=== PATIENT | female | born 1980 | race Caucasian/White ===

== ENCOUNTER → 2017-09-20 15:21 | Outpatient (CLI) | payer OTHER, SELFPAY ==
[2017-09-20 15:55] LABS: Hematocrit 29.7 % (37-47); Hemoglobin 9.8 g/dl (12.0-15.0); Mean Corpuscular Hgb 28.1 pg (27.0-32.0); Mean Corpuscular Volume 85.1 fL (81-99); Mean Platelet Vol. 9.1 fl (6.2-12.0); Platelet Count 271 K/mm3 (150-450); RBC Distribution Width CV 13.9 % (11.6-14.6); RBC Distribution Width SD 43.2 fl (35.1-43.9); Red Blood Count 3.49 M/mm3 (4.2-5.4); White Blood Count 12.3 K/mm3 (4.4-11.0)
[2017-09-20 16:00] LABS: Scan Indicated on CBC? Y/N NO
[2017-09-20 16:19] LABS: Glucose Challenge Gest 1H 50g 105 mg/dL (70-140)
== END ==
PROVIDERS: Visit Provider Obstetrics & Gynecology
DX: Z34.82 Encounter for supervision of other normal pregnancy, second trimester (principal)
CPT/HCPCS: 36415; 82950; 85027

== ENCOUNTER → 2017-11-22 16:59 | Outpatient (CLI) | payer OTHER, SELFPAY ==
[2017-11-22 19:57] LABS: Group B Strep DNA By PCR Negative (Negative); Internal Control PASS; Probe Check PASS; Specimen Processing Control PASS
== END ==
PROVIDERS: Visit Provider Obstetrics & Gynecology
DX: Z36.85 Encounter for antenatal screening for Streptococcus B (principal)
CPT/HCPCS: 87081; 87653

== ENCOUNTER → 2017-12-19 13:40 | Outpatient (CLI) | payer OTHER, MEDICAID, SELFPAY ==
[2017-12-19 15:44] LABS: Hematocrit 32.7 % (37-47); Mean Corp Hgb Conc 33.6 g/gl (32-36); Mean Corpuscular Hgb 29.3 pg (27.0-32.0); Mean Corpuscular Volume 87.2 fL (81-99); Mean Platelet Vol. 9.8 fl (6.2-12.0); Platelet Count 263 K/mm3 (150-450); RBC Distribution Width CV 14.4 % (11.6-14.6); RBC Distribution Width SD 44.1 fl (35.1-43.9); Red Blood Count 3.75 M/mm3 (4.2-5.4); White Blood Count 13.7 K/mm3 (4.4-11.0)
[2017-12-19 15:45] LABS: Scan Indicated on CBC? Y/N NO
[2017-12-19 15:56] LABS: Protein, Urine (Random) < 6.0 mg/dL (<11.9)
[2017-12-19 16:00] LABS: ALB/GLOB Ratio 0.7 RATIO (0.9-2.4); AST(SGOT) 11 U/L (15-37); Alanine Aminotransfer ALT/SGPT 16 U/L (13-56); Alkaline Phosphatase 125 U/L (45-117); Anion Gap 13 (5-15); BUN 9 mg/dL (7-18); BUN/Creat Ratio 16.5 RATIO (10-20); Calcium,Total 8.8 mg/dL (8.5-10.1); Chloride 106 mmol/L (98-107); Creatinine, Serum 0.54 mg/dL (0.55-1.02); EST Glomerular Filtration Rate 135 mL/min (>60); Est Glom Filt Rate - Afr Amer 163 mL/min (>60); Globulin 4.1 g/dL (2.2-4.2); Glucose 78 mg/dL (74-106); Potassium 3.7 mmol/L (3.5-5.1); Protein, Total 7.1 g/dL (6.4-8.2); Sodium Level 140 mmol/L (136-145); Uric Acid 3.8 mg/dL (2.6-6.0)
== END ==
PROVIDERS: Visit Provider Obstetrics & Gynecology
DX: O13.3 Gestational [pregnancy-induced] hypertension without significant proteinuria, third trimester (principal); Z3A.00 Weeks of gestation of pregnancy not specified
CPT/HCPCS: 36415; 80053; 82570; 84156; 84550; 85027

== ENCOUNTER 2017-12-21 08:35 | Inpatient (IN) | payer OTHER, MEDICAID, SELFPAY ==
[2017-12-21 08:28] VITALS: BMI 43.0
[2017-12-21] MEDS: Lactated Ringers 1,000 ML 50 ML IV ×3 (09:00→17:28)
[2017-12-21 09:25] LABS: Hematocrit 31.8 % (37-47); Hemoglobin 10.4 g/dl (12.0-15.0); Mean Corp Hgb Conc 32.7 g/gl (32-36); Mean Corpuscular Hgb 28.3 pg (27.0-32.0); Mean Corpuscular Volume 86.6 fL (81-99); Mean Platelet Vol. 9.3 fl (6.2-12.0); Platelet Count 240 K/mm3 (150-450); RBC Distribution Width CV 14.5 % (11.6-14.6); RBC Distribution Width SD 45.6 fl (35.1-43.9); Red Blood Count 3.67 M/mm3 (4.2-5.4); White Blood Count 13.1 K/mm3 (4.4-11.0)
[2017-12-21 09:26] LABS: Scan Indicated on CBC? Y/N NO
--- NOTE | 2017-12-21 09:51 | PCM.PN.OB ---
Subjective: Appears comfortable. Some contractions Objective: Afeb VSS. FHR tracing Cat 1. - Physical Exam General: Alert, Oriented x3, Cooperative, No apparent distress Lungs: Clear to auscultation, Normal air movement Cardiovascular: Regular rate, Regular Rhythm Abdomen: Non Tender, Gravid, Appropriate for Gestational Age Extremities: No edema Skin: No rashes Neurological: Neuro grossly intact Psych/Mental Status: Normal Affect Comment: CE 5/80/-2. Weight: 283 lb Body Mass Index (BMI) 43.0 Laboratory Tests Past 24 Hrs 12/21/17 12/21/17 09:00 09:10 WBC 13.1 H RBC 3.67 L Hgb 10.4 L Hct 31.8 L MCV 86.6 MCH 28.3 MCHC 32.7 RDW 14.5 RDW Differential 45.6 H Plt Count 240 MPV 9.3 Blood Type Pending Antibody Screen Pending Medical Necessity - Tobacco Use Smoking Status: Current every day smoker Assessment/Plan Admitted in labor. AROM performed with thin meconium noted. Will have pediatrics at delivery. Epidural if desired.
[2017-12-21] MEDS: Ondansetron 4 MG/2 ML Vial IV (12:22)
[2017-12-21] MEDS: fentaNYL-bupivacaine (epidural) 100 ML BAG EPIDURAL (12:23)
[2017-12-21] MEDS: Oxytocin 30 units/NS 500 ml 30 UNITS/500 ML IV.SOLN IV (13:00)
[2017-12-21] MEDS: Amnioinfusion- 0.9% NS 1,000 ML IV.SOLN. 1000 ML INTRA-UTER (15:59)
[2017-12-21] MEDS: Acetaminophen 325 MG Tablet PO (17:40)
--- NOTE | 2017-12-21 19:17 | OP.PCM_ITS ---
Vaginal Delivery Maternal Presentation: Active Labor 40 + wk labor Amniotic Membrane Rupture Type: Artificial Amniotic Fluid Description: Lightly stained meconium Final JOSSIE Source: US <20 weeks Gestational age: 40 + wk [place] doctor who attended delivery (if requested by OB): Teri Chino Date of Procedure: 12/21/17 Pre-Operative Diagnosis: 40 + wk labor. Post-Operative Diagnosis: same Surgery/ Procedure Performed: Spontaneous Vaginal Delivery Type of Anesthesia: Epidural Description of Procedure: of a jacobs viable male over intact perineum Head delivered OA. No nuchal cord noted. Shoulders delivered easily. OP and nares bulb suctioned after delivery of shoulders. baby vigorous and crying, placed on maternal abdomen. Delayed cord clamping. Cord clamped x two and cut. Routine blood for tyoping and cord gases collected and sent. PP exam; 1st deg posterior vaginal laceration repaired to hemostatic, intact with 3-0 vicryl. No other lacerations. Placenta delivered by spont expulsion, expression. 3V cord, normal appearing, intqact with trailing membranes. EBL 350 cc Pt and infant tolerated delivery well. to recovery , stable condition. Presentation: Vertex, ALEIDA Placental Delivery Description: Spontaneous, Expressed Placenta Disposition: [facility] Cord Gases drawn per routine: ABG, VBG Cord Entanglement: None Drain: Dumont to straight drain Estimated Blood Loss: 350 Infant A gender: Male (1 minute): 9 (5 minute): 9 Episiotomy Description: None Laceration: Midline, Vaginal Extension/lac, 1st degree Medications given after delivery: IV Pitocin Complications: None
--- NOTE | 2017-12-21 19:20 | PCM.DCVAG ---
Discharge Diet: No Restrictions Discharge Activity: May Shower, May Take a Tub Bath May resume sexual activity in: 4-6 weeks Additional Activity Instructions:: Nothing in the vagina for 4-6 weeks. You may return to work/school in 6 weeks. Additional Instructions: If you experience any of the following, contact your healthcare provider. Bleeding that soaks a pad every hour for 2 hours Fever 100.4 or higher Unrelieved abdominal pain Problems urinating (including inability to urinate or burning while urinating). Visual changes Severe headache Flu-like symptoms Pain or redness in one of both of your breasts Pain, warmth, tenderness or swelling in your legs, especially the calf area Frequent nausea and vomiting Symptoms of depression or anxiety If you experience any of the following, call 911 or go to the nearest Emergency Room. Chest pain Problems breathing Seizure activity Partial or complete paralysis of a body part, slurred speech, weakness or drooping of the face, or a sudden inability to walk or hold your balance Allergies/Adverse Reactions: Allergies Penicillins Allergy (Verified 12/21/17 08:31) Other Medications to take at Discharge Acetaminophen [Tylenol Extra Strength] 500 mg PO Q6H PRN PRN 12/21/17 Cephalexin [Keflex] 500 mg PO Q8 12/21/17 Vits [Prenatabs FA] 1 tablet PO DAILY 12/21/17 proMETHazine tablet [Phenergan tablet] 25 mg PO Q4H PRN PRN 12/21/17 Please Follow Up With: Kayleigh Bell MD - [phone] When: Call to make an appointment with your doctor in 6 weeks. Primary Care Physician: Care Physician,No Primary [Primary Care Provider] - Test Results: Test results from this visit will be discussed in further detail at your follow-up appointment, if applicable. Proposed Discharge Date: 12/23/17
--- NOTE | 2017-12-21 19:21 | DCINST_ITS ---
Discharge Diet: No Restrictions Discharge Activity: May Shower, May Take a Tub Bath May resume sexual activity in: 4-6 weeks Additional Activity Instructions:: Nothing in the vagina for 4-6 weeks. You may return to work/school in 6 weeks. Additional Instructions: If you experience any of the following, contact your healthcare provider. * Bleeding that soaks a pad every hour for 2 hours * Fever 100.4 or higher * Unrelieved abdominal pain * Problems urinating (including inability to urinate or burning while urinating) . * Visual changes * Severe headache * Flu-like symptoms * Pain or redness in one of both of your breasts * Pain, warmth, tenderness or swelling in your legs, especially the calf area * Frequent nausea and vomiting * Symptoms of depression or anxiety If you experience any of the following, call 911 or go to the nearest Emergency Room. * Chest pain * Problems breathing * Seizure activity * Partial or complete paralysis of a body part, slurred speech, weakness or drooping of the face, or a sudden inability to walk or hold your balance Allergies/Adverse Reactions: Allergies Penicillins Allergy (Verified 12/21/17 08:31) Other Medications to take at Discharge Acetaminophen [Tylenol Extra Strength] 500 mg PO Q6H PRN PRN 12/21/17 Cephalexin [Keflex] 500 mg PO Q8 12/21/17 Vits [Prenatabs FA] 1 tablet PO DAILY 12/21/17 proMETHazine tablet [Phenergan tablet] 25 mg PO Q4H PRN PRN 12/21/17 Please Follow Up With: Kayleigh Bell MD - [phone] When: Call to make an appointment with your doctor in 6 weeks. Primary Care Physician: Care Physician,No Primary [Primary Care Provider] - Test Results: Test results from this visit will be discussed in further detail at your follow- up appointment, if applicable. Proposed Discharge Date: 12/23/17
[2017-12-21] MEDS: Oxytocin 30 units/NS 500 ml 30 UNITS/500 ML IV.SOLN 334 UNITS IV (19:23)
[2017-12-21] MEDS: Oxytocin 30 units/NS 500 ml 30 UNITS/500 ML IV.SOLN 167 UNITS IV (20:00)
--- NOTE | 2017-12-22 03:00 | NURSING ---
Taking over pt care at this time.
[2017-12-22 05:00] VITALS: BP 127/80; PULSE 85; RESP 18; TEMP 36.2; O2SAT 97
[2017-12-22] MEDS: Ibuprofen 600 MG Tablet PO ×2 (05:32→16:46)
[2017-12-22 05:38] LABS: Hematocrit 28.8 % (37-47); Hemoglobin 9.8 g/dl (12.0-15.0); Mean Corpuscular Hgb 29.7 pg (27.0-32.0); Mean Corpuscular Volume 87.3 fL (81-99); Mean Platelet Vol. 9.5 fl (6.2-12.0); Platelet Count 232 K/mm3 (150-450); RBC Distribution Width CV 14.1 % (11.6-14.6)
[2017-12-22 05:53] LABS: Scan Indicated on CBC? Y/N NO
[2017-12-22 07:30] VITALS: BP 127/66; PULSE 77; RESP 18; TEMP 36.2
[2017-12-22] MEDS: Acetaminophen 500 MG Tablet 1000 MG PO (07:46)
--- NOTE | 2017-12-22 08:18 | PCM.PN.OB ---
Subjective: PPD#1 Doing well. Bottle feeding. Very pleased with all events / delivery. Good epidural. Feels well, and c/o minimal back pain only. - Physical Exam General: Alert, Oriented x3, Cooperative, No apparent distress HEENT: Atraumatic Neck: Supple Abdomen: Soft - Fundus firm NT at umbilicus Lymphatic: No Cervical, Supraclavicular, or Inguinal Adenopathy Neurological: Cranial nerves II-XII grossly intact Vital Signs Temp Pulse Resp BP Pulse Ox 97.1 F L 85 18 127/80 H 97 12/22/17 05:00 12/22/17 05:00 12/22/17 05:00 12/22/17 05:00 12/22/17 05:00 Oxygen Delivery Method Room Air Weight: 128.367 kg Body Mass Index (BMI) 43.0 Intake and Output for Last 24 Hours 12/20/17 12/21/17 12/22/17 23:59 23:59 23:59 Intake Total 2700 / 2700 Output Total 1100 / 1100 Balance 1600 / 1600 Laboratory Tests Past 24 Hrs 12/21/17 12/21/17 12/22/17 09:00 09:10 05:15 WBC 13.1 H 14.0 H RBC 3.67 L 3.30 L Hgb 10.4 L 9.8 L Hct 31.8 L 28.8 L MCV 86.6 87.3 MCH 28.3 29.7 MCHC 32.7 34.0 RDW 14.5 14.1 RDW Differential 45.6 H 43.0 Plt Count 240 232 MPV 9.3 9.5 Blood Type O POSITIVE Antibody Screen NEGATIVE Medical Necessity - Tobacco Use Smoking Status: Current every day smoker Assessment/Plan PPD#1 Stable pp. circumcision planned today. Continue care. Likely dischg home PPD#2
[2017-12-22 13:37] VITALS: BP 138/78; PULSE 84; RESP 18; TEMP 37.1
[2017-12-22 16:00] VITALS: BP 132/77; PULSE 82; RESP 18; TEMP 36.8
[2017-12-22 21:25] VITALS: BP 137/62; PULSE 71; RESP 20; TEMP 36.2; O2SAT 97
[2017-12-23 02:50] VITALS: BP 142/91; PULSE 65; RESP 20; TEMP 36.3
[2017-12-23 02:55] VITALS: BP 139/91
[2017-12-23] MEDS: Ibuprofen 600 MG Tablet PO (04:11)
--- NOTE | 2017-12-23 05:20 | NURSING ---
2124-pt state that the abcess area is smaller than what it has been, noted harded area to abcess area and slightly reddened. bandaids intact. pt states that this was drained and packed in the ER Tuesday and she was told to leave it for a couple days.
--- NOTE | 2017-12-23 05:24 | NURSING ---
5-pt states that has been this way the entire . denies feeling sob. pulse ox 97% on ra. denies cough.
[2017-12-23 08:07] VITALS: BP 143/86; PULSE 67; RESP 18; TEMP 36.3; O2SAT 98
--- NOTE | 2017-12-23 17:24 | PCM.PN.OB ---
Subjective: PPD#2 (late entry from approx 7:10 am rounding) Doing well. minimal pain and bleeding. Bottle feeding. No concerns voiced up and preparing for dischg. Asking how soon she may go home. Objective: Up walking around room, NAD - Physical Exam General: Alert, Oriented x3, Cooperative HEENT: Atraumatic Neck: Supple Psych/Mental Status: Normal Affect Vital Signs Temp Pulse Resp BP Pulse Ox 97.3 F L 67 18 143/86 H 98 12/23/17 08:07 12/23/17 08:07 12/23/17 08:07 12/23/17 08:07 12/23/17 08:07 Oxygen Delivery Method Room Air Weight: 128.367 kg Body Mass Index (BMI) 43.0 Intake and Output for Last 24 Hours 12/21/17 12/22/17 12/23/17 23:59 23:59 23:59 Intake Total 2700 / 2700 Output Total 1100 / 1100 Balance 1600 / 1600 Medical Necessity - Tobacco Use Smoking Status: Current every day smoker Assessment/Plan PPD#2 Stable pp. dischg home PPD#2
== END 2017-12-23 09:55 | disposition home or self-care (01) | DRG 775 ==
LOC: WPOUT 08:36 → WP 19:04
PROVIDERS: Obstetrics & Gynecology; Admitting Provider Obstetrics & Gynecology; Visit Provider Obstetrics & Gynecology
DX: O48.0 Post-term pregnancy (principal); O71.4 Obstetric high vaginal laceration alone; Z3A.40 40 weeks gestation of pregnancy; O77.0 Labor and delivery complicated by meconium in amniotic fluid; O99.334 Smoking (tobacco) complicating childbirth; Z37.0 Single live birth
CPT/HCPCS: 59025; 59050; 85027; 86850; 86900; 99218; J7030; J7120; G0378; J2405

== ENCOUNTER → 2021-10-23 | Outpatient (CLI) | payer OTHER, SELFPAY ==
[2021-10-23 12:22] LABS: Absolute Lymphocyte Count 2.18 X10^3/uL (0.83-4.51); Absolute Neutrophil Count 4.4 X10^3/uL (2.0-7.7); Basophil# 0.06 X10^3/uL; Basophil% 0.8 % (0-1); Eosinophil# 0.26 X10^3/uL; Eosinophils% 3.5 % (0-5); Hemoglobin 11.5 g/dL (12.0-15.0); Lymphocyte # 2.18 X10^3/ul (0.83-4.51); Lymphocyte % 29.1 % (19-41); Mean Corp Hgb Conc 31.9 g/dL (32-36); Mean Corpuscular Hgb 27.8 pg (27.0-32.0); Mean Corpuscular Volume 87.2 fL (81-99); Mean Platelet Vol. 9.8 fl (6.2-12.0); NRBC Flagged by Analyzer 0 % (0-5); Neutrophil # 4.38 X10^3/uL (2.7-7.7); Neutrophil % 58.3 % (47-70); Platelet Count 300 K/mm3 (150-450); RBC Distribution Width CV 13.5 % (11.6-14.6); Red Blood Count 4.13 M/mm3 (4.2-5.4); White Blood Count 7.5 K/mm3 (4.4-11.0)
[2021-10-23 12:50] LABS: AST(SGOT) 10 U/L (15-37); Alanine Aminotransfer ALT/SGPT 18 U/L (13-56); Albumin, Serum 3.7 g/dL (3.2-5.0); Alkaline Phosphatase 47 U/L (45-117); Anion Gap 3 (5-15); BUN 16 mg/dL (7-18); BUN/Creat Ratio 17.5 RATIO (10-20); Calcium,Total 8.6 mg/dL (8.5-10.1); Chloride 107 mmol/L (98-107); Creatinine, Serum 0.91 mg/dL (0.55-1.02); EST Glomerular Filtration Rate 73 mL/min (>60); Est Glom Filt Rate - Afr Amer 88 mL/min (>60); Ferritin 6 ng/mL (8-252); Globulin 3.6 g/dL (2.2-4.2); Glucose 100 mg/dL (74-106); Iron 26 ug/dL (50-170); Iron Binding Capacity,Total 431 ug/dL (250-450); Potassium 3.9 mmol/L (3.5-5.1); Protein, Total 7.3 g/dL (6.4-8.2); Sodium Level 138 mmol/L (136-145); T4 Free Direct 1.03 ng/dL (0.76-1.46); Thyroid Stim Hormone (TSH) 2.07 uIU/mL (0.358-3.74)
== END | disposition home or self-care (01) ==
LOC: BIMLAB 07:58
PROVIDERS: PCP Internal Medicine; Referring Provider Internal Medicine; Visit Provider Internal Medicine
DX: G25.81 Restless legs syndrome (principal); F41.1 Generalized anxiety disorder
CPT/HCPCS: 36415; 80053; 82728; 83540; 83550; 84439; 84443; 85025

== ENCOUNTER 2022-05-02 01:23 | Emergency (ER) | payer OTHER, SELFPAY ==
[2022-05-02 01:24] VITALS: BP 162/94; PULSE 106; RESP 18; TEMP 36.9; O2SAT 92; BMI 29.5
--- NOTE | 2022-05-02 01:40 | EDS_ITS ---
HPI History of Present Illness Chief Complaint: General Illness Informant: patient Onset/Context/Timing Onset: Yesterday Context: Gradual Onset Current Severity: Moderate Maximum Severity: Moderate Narrative Narrative: Patient present secondary to cough, body aches, sore throat, nausea, and vomiting. 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 Patient states her symptoms started around 430 yesterday morning. She is having nausea and vomiting as well as posttussive emesis. She has been wheezing and using her nebulizer machine at home. [facility] Medical History Asthma Bilateral hip pain Difficulty balancing when standing Fatigue Frequent headaches Generalized anxiety disorder Gout Headache Hives Overflow incontinence of urine Physical exam, pre-employment Restless leg syndrome Seasonal allergies Home Medications cetirizine 10 mg capsule (Zyrtec) 10 mg PO DAILY 06/09/20 [History Last Taken Unknown] ferrous sulfate 325 mg (65 mg iron) tablet 325 mg PO Q OTHER DAY #90 tabs 10/23/21 [Rx Last Taken Unknown] gabapentin 300 mg capsule 300 mg PO QHS #90 caps 11/24/21 [Rx Last Taken Unknown] escitalopram oxalate 5 mg tablet (Lexapro) 5 mg PO DAILY #90 tabs 01/19/22 [Rx Last Taken Unknown] tirzepatide 5 mg/0.5 mL subcutaneous pen injector (Mounjaro) 5 mg (0.5 mL) subcut QWEEK #6.5 mL 01/20/22 [Rx Last Taken Unknown] azithromycin 250 mg tablet See Rx Instructions PO .COMPLEX #6 tabs 02/23/22 [Rx Last Taken Unknown] albuterol sulfate 90 mcg/actuation aerosol inhaler See Rx Instructions .Route .COMPLEX #8.5 ea 04/14/22 [Rx Last Taken Unknown] albuterol sulfate 2.5 mg/3 mL (0.083 %) solution for nebulization 2.5 mg (3 mL) inhalation Q4H PRN #25 vials 05/02/22 [Rx Last Taken Unknown] ondansetron 4 mg disintegrating tablet 4 mg PO Q8H PRN nausea and vomiting #10 tabs 05/02/22 [Rx Last Taken Unknown] Allergy/AdvReac Type Severity Reaction Status Date / Time house dust mite Allergy unknown Verified 05/02/22 01:29 Penicillins Allergy Other Verified 05/02/22 01:29 shellfish derived Allergy unknown Verified 05/02/22 01:29 Family History Other Asthma Breast cancer Family history of prostate cancer Heart disease Hypertension Surgical History History of wisdom tooth extraction Social History Smoking Status: Current every day smoker tobacco type: cigarettes alcohol intake: current alcohol intake frequency: holidays/special occasions only Alcohol type: beer substance use type: does not use what type of physical activity do you participate in: walking ROS ROS ED Constitutional Constitutional ED: Reports chills, fever(s) and subjective Eyes Eyes: Denies change in vision or discharge from eye(s) ENT ENT ED: Reports sore throat and other Details: Congestion ; Denies discharge from eye(s) or rhinorrhea Cardiovascular Cardiovascular: Denies chest pain or palpitations Respiratory/Chest Respiratory/Chest: Reports cough, dyspnea and other Details: Wheezing Gastrointestinal Gastrointestinal: Reports nausea and vomiting; Denies abdominal pain or diarrhea Genitourinary Genitourinary ED: Denies difficulty urinating or dysuria Musculoskeletal Musculoskeletal: Reports myalgias Integumentary Denies Abrasions or rash Neurologic Neurologic: Reports headache(s) Allergic/Immunologic Allergic/Immunologic ED: Denies lip swelling or urticaria EXAM Physical Exam Const Vital Signs: 05/02/22 01:24 05/02/22 01:27 05/02/22 01:44 Temperature 98.4 F Temperature Source Oral Pulse Rate 106 H 114 H Respiratory Rate 18 20 H Respiratory Effort Non-Labored Short of Breath Respiratory Depth Respiratory Pattern Normal Blood Pressure 162/94 H Blood Pressure Mean 116 Pulse Ox 92 Oxygen Delivery Method Room Air 05/02/22 01:44 Temperature Temperature Source Pulse Rate Respiratory Rate 20 H Respiratory Effort Normal Non-Labored Short of Breath Respiratory Depth Shallow Respiratory Pattern Normal Blood Pressure Blood Pressure Mean Pulse Ox 98 Oxygen Delivery Method Room Air Positive well nourished and well developed General Appearance ED: well developed HEENT Reports normocephalic, head/scalp atraumatic and moist mucous membranes Eyes PERRL and EOMs intact bilaterally Neck supple Chest Wall inspection of chest normal and palpation of chest normal Resp normal respiratory effort Resp Narrative: Lung sounds mildly diminished bilaterally. Occasional expiratory wheeze. Cardio regular rate and regular rhythm GI normal to inspection, nondistended, normoactive bowel sounds Palpation: soft Extremity normal to inspection Neuro oriented x3 and no sensory deficits noted Sensorium / Orientation: alert Motor Exam: strength 5/5 throughout Psych mental status grossly normal Skin no rashes or lesions noted MDM MDM MDM Narrative Medical decision making narrative: Patient given DuoNeb treatment here along with Zofran and Robitussin. Swabs for COVID, influenza, RSV sent. Treatment and Re-Evaluation Narrative: COVID and RSV test are negative. Influenza test is positive for flu A. On repeat evaluation patient does feel improved. I will write her prescriptions for albuterol nebulized solution as well as Zofran. She will cotton picker Robitussin [id number]. We discussed Tamiflu, however due to the side effects patient would prefer to avoid this at this time. Discharge Plan Triage Chief Complaint: General Illness ED Provider: Jenniffer Caraballo Dx/Rx/DC Orders Clinical Impression: Influenza A Instructions: ED Influenza (Adult) Prescriptions: New ondansetron 4 mg tablet,disintegrating 4 mg PO Q8H PRN (Reason: nausea and vomiting) Qty: 10 0RF albuterol sulfate 2.5 mg /3 mL (0.083 %) solution for nebulization 2.5 mg inhalation Q4H PRN Qty: 25 0RF Rx Instructions: Use q4 hours and PRN for wheezing No Action Zyrtec 10 mg capsule 10 mg PO DAILY Mounjaro 5 mg/0.5 mL pen injector 5 mg subcut QWEEK Qty: 6.5 3RF azithromycin 250 mg tablet See Rx Instructions PO .COMPLEX Qty: 6 0RF Rx Instructions: take 500 mg today (day 1), then 250 mg for 4 days (days 2-5) PO ferrous sulfate 325 mg (65 mg iron) tablet 325 mg PO Q OTHER DAY Qty: 90 2RF gabapentin 300 mg capsule 300 mg PO QHS Qty: 90 1RF escitalopram oxalate [Lexapro] 5 mg tablet 5 mg PO DAILY Qty: 90 3RF albuterol sulfate 90 mcg/actuation HFA aerosol inhaler See Rx Instructions .ROUTE .COMPLEX Qty: 8.5 0RF Dose Instruction: INHALE 2 PUFFS BY MOUTH EVERY 6 HOURS IF NEEDED FOR SHORTNESS OF BREATH OR WHEEZING Rx Instructions: INHALE 2 PUFFS BY MOUTH EVERY 6 HOURS IF NEEDED FOR SHORTNESS OF BREATH OR WHEEZING Primary Care Provider: Kermit Banerjee Referrals: Kermit Banerjee MD [Primary Care Provider] - 1 Week Disposition Disposition: Home, Self Care
[2022-05-02 01:44] VITALS: PULSE 114; RESP 20; O2SAT 98
[2022-05-02] MEDS: Ipratropium/Albuterol Sulfate 3 ML AMPUL.NEB INHALATION (01:44)
[2022-05-02] MEDS: guaiFENesin Dm 10 ML UDC PO (01:58)
[2022-05-02] MEDS: Ondansetron ODT 4 MG Tablet PO (01:58)
== END 2022-05-02 03:13 | disposition home or self-care (01) ==
PROVIDERS: Emergency Provider Emergency Medicine; PCP Internal Medicine; Visit Provider Emergency Medicine
DX: J10.1 Influenza due to other identified influenza virus with other respiratory manifestations (principal); R11.2 Nausea with vomiting, unspecified; J45.909 Unspecified asthma, uncomplicated; F41.1 Generalized anxiety disorder; F17.210 Nicotine dependence, cigarettes, uncomplicated; Z79.899 Other long term (current) drug therapy
CPT/HCPCS: 87428; 87807; 94640; 99251; 99282; G0463

== ENCOUNTER 2022-05-27 16:58 | Outpatient (RCR) | payer OTHER, SELFPAY ==
--- NOTE | 2022-05-27 19:40 | HP.PTEVAL ---
Patient's Visit Information RUSS RAMIREZ is a 42 year old F referred to Physical Therapy by Eb Menchaca NP-C with a diagnosis of LUMAGO WITH SIATICA ,LEFT SIDE ,LUMBAGO WITH SCIATICA RIGHT. Date of Evaluation: 05/27/22 Physical Therapist: Rigo Teixeira, PT, Cert MDT, OCS - Visit Plan Frequency: 2x /Week Duration: 4 Weeks Plan: PT INTERVTIONS BRAYDEN EX'S ,DLS ABD/BACK ,POSTURAL EX'S ,HIP STRENGTHENING BILATERAL ,ROM /FLEXABLITY HIPS , AND MODALTIES PRN - Subjective This 42 y/o female presents physical therapy LBP with sciatica. Patient has had LBP many years but symptoms have become more frequent. 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 Over counter Ibuprorin helped . Patient had x-rays DDD. Patient symptoms intermittent buttock radiates to groin and intermittent to lateral hip . Described as sharp shooting pain. Location of pain located symmetrical lumbar. Patient symptoms worse at night thus has to walk around. Aggravating walking extended ,standing, sitting. Alleviating factors stretching . Pain aggravates sleeping. Denies paresthesia/tingling today except last week felt some numbness. Coughing/sneezing -. Bowel /bladder -. Patient has had no recent treatment except in HS . Patient condition affects QOL and function. No h/o trauma. SOCAIL: . VOACTION: Secetary - Pain Bilateral Back Pain Intensity (Out of 10): 2 Pain Intensity Range: 10 Comment: worse 10/10 - Objective POSTURE: mild forward posture. SYMMTRIES: align. PALPATION: tender greater trochanteric bursitis. FLEXABLITITY: piriformis min tight, hamstrings min tight. PROM : IR 45 degrees ,ER 70 pain , hip flexion 110 degrees pain > right than left. MMT: quads/hams 4/5 , hip flexion/abduction 4-/5 ,ankle 5/5. LUMBAR ROM: flexion min loss ,extension mod loss ,side glides loss min loss - Special Tests L/S Slump test left side: Negative L/S Slump test right side: Negative L/S Left Straight Leg Raise: Negative L/S Right Straight Leg Raise: Negative Lumbar Standing: Flexion - Mechanical Response: No effect Lumbar Standing: Flexion - Symptoms During Testing: No effect Lumbar Standing: Flexion - Symptoms After Testing: No effect Lumbar Standing: Extension - Mechanical Response: No effect Lumbar Standing: Extension - Symptoms During Testing: Increases Lumbar Standing: Extension - Symptoms After Testing: No worse Lumbar Standing: Right Side Glides - Mechanical Response: No effect Lumbar Standing: Right Side [place] - Symptoms During Testing: No effect Lumbar Standing: Right Side [place] - Symptoms After Testing: No effect Lumbar Standing: Left Side [place] - Mechanical Response: No effect Lumbar Standing: Left Side [place] - Symptoms During Testing: No effect Lumbar Standing: Left Side [place] - Symptoms After Testing: No effect Lumbar Lying: Flexion - Mechanical Response: No effect Lumbar Lying: Flexion - Symptoms During Testing: No effect Lumbar Lying: Flexion - Symptoms After Testing: No effect Lumbar Lying: Extension - Mechanical Response: No effect Lumbar Lying: Extension - Symptoms During Testing: Increases Lumbar Lying: Extension - Symptoms After Testing: No worse Comments:: SYMMTRICAL LUMBAR R Hip Scour: Negative R Hip FADDIR - Labrum: Negative R Hip Trendelenberg - Glut Medius: Negative R Hip [place] - IT Band: Negative L Hip Scour: Positive L Hip Trendelenberg - Glut Medius: Negative L Hip [place] - IT Band: Negative - Balance/Special Test Scores Oswestry Low Back Score: 24 - Goals Goal 1:: Patient to be I with HEP for back and hips Goal Time Frame: 4-6 Weeks Goal 2:: Patient to demonstrate 50% improvement with decrease back / hip pain and improved function Goal Time Frame: 4-6 Weeks Goal 3:: Patient to improve lumbar ROM for function of recovery to perform job demands Goal Time Frame: 4-6 Weeks Goal 4:: Patient to improve strength of hips to good to improve function Goal Time Frame: 4-6 Weeks Goal 5:: Patient to improve back oswestry score by 5 points or> to improve QOL and function. - Rehabilitation Potential Physical Therapy Diagnosis: This patient has low back pain along with weakness in hip ,restricted hip ROM with tenderness greater trochanteric bursitis ,pain with walking and standing extending distances thus physical therapy can address these impiarments. Rehabilitation Potential: Good - Anticipated Interventions Patient/Client Instruction: Educate patient on: Condition, Plan of Care For the Purpose of:: To decrease pain, To increase ROM, To improve muscle performance and motor function, To improve ability to perform ADL's, To increase tolerance to activity/condition/position, To improve performance and independence with ADL's, To improve ability of physical actions for home/community/work/leisure, To improve health of tissue, To decrease soft tissue restriction, To increase flexibility/ROM, To prevent re-injury Therapeutic Exercise to Include: Strength training, Body mechanics, Postural training, Flexibilty training, Active ROM, Dynamic Lumbar Stabilization, Brayden Exercises For the Purpose of:: To decrease pain, To increase ROM, To improve muscle performance and motor function, To improve ability to perform ADL's, To increase tolerance to activity/condition/position, To improve ability of physical actions for home/community/work/leisure, To improve health of tissue, To decrease soft tissue restriction, To increase flexibility/ROM, To prevent re-injury, To improve tolerance to ADL's TENS: Yes IF ES: Yes Cryotherapy (ice pack, ice massage): Yes Thermo therapy (hot pack): Yes Ultrasound (thermal/non thermal): Yes For the Purpose of:: To decrease pain, To increase ROM, To improve muscle performance and motor function, To improve ability to perform ADL's, To increase tolerance to activity/condition/position, To improve performance and independence with ADL's, To improve health of tissue, To decrease soft tissue restriction, To increase flexibility/ROM, To improve tolerance to ADL's Thank you for the opportunity to evaluate your patient. For Medicare and Medicare HMO plans, please review the plan of care and approve it. It will need to be FAXED BACK to us at [phone] for Medicare purposes. For Medicare only, by signing this I certify the plan of care. Please let me know if there are questions or concerns regarding this plan of care. Physician Signature: Date:
--- NOTE | 2022-11-24 13:21 | HP.PTDCNRP_ITS ---
Patient Information Patient Information: RUSS RAMIREZ was seen in my office for initial evaluation on 05/27/22. The following Plan of Care was established for this patient: POC Established Initial Frequency: 2x /Week Initial Duration: 4 Weeks Anticipated Interventions Patient/Client Instruction: Educate patient on: Condition and Plan of Care For the Purpose of:: To decrease pain, To increase ROM, To improve muscle performance and motor function, To improve ability to perform ADL's, To increase tolerance to activity/condition/position, To improve performance and indepe ndence with ADL's, To improve ability of physical actions for home/community/work/leisure, To improve health of tissue, To decrease soft tissue restriction, To increase flexibility/ROM and To prevent re-injury Therapeutic Exercise to Include: Strength training, Body mechanics, Postural training, Flexibilty training, Active ROM, Dynamic Lumbar Stabilization and Samuel Exercises For the Purpose of:: To decrease pain, To increase ROM, To improve muscle performance and motor function, To improve ability to perform ADL's, To increase tolerance to activity/condition/position, To improve ability of physical actions for home/community/work/leisure, To improve health of tissue, To decrease soft tissue restriction, To increase flexibility/ROM, To prevent re-injury and To improve tolerance to ADL's TENS: Yes IF ES: Yes Cryotherapy (ice pack, ice massage): Yes Thermo therapy (hot pack): Yes Ultrasound (thermal/non thermal): Yes For the Purpose of:: To decrease pain, To increase ROM, To improve muscle pe rformance and motor function, To improve ability to perform ADL's, To increase tolerance to activity/condition/position, To improve performance and independence with ADL's, To improve health of tissue, To decrease soft tissue restriction, To increase flexibility/ROM and To improve tolerance to ADL's Last Seen Last Seen: This patient was last seen in our office . Pertinent comments regarding their Physical therapy will appear below: Patient seen for PT Evaluation for HEP At this point I will be discontinuing this patient from physical therapy. I would be happy to see this patient again in the future if found appropriate by the physician. Thank you! Rigo Teixeira, PT, Cert MDT, OCS Balance/Gait/Functional tests Balance/Special Test Scores Oswestry Low Back Score: 24
== END 2022-05-27 19:00 | disposition home or self-care (01) ==
LOC: PT 16:58
PROVIDERS: PCP Internal Medicine; Referring Provider Nurse Practitioner Family; Visit Provider Nurse Practitioner Family
DX: M54.41 Lumbago with sciatica, right side (principal); M54.42 Lumbago with sciatica, left side
CPT/HCPCS: 97110; 97162

== ENCOUNTER → 2023-02-28 | Outpatient (CLI) | payer OTHER, SELFPAY ==
[2023-02-28 12:54] LABS: Thyroid Stim Hormone (TSH) 1.86 uIU/mL (0.358-3.74)
== END | disposition home or self-care (01) ==
LOC: BIMLAB 09:40
PROVIDERS: PCP Internal Medicine; Visit Provider Internal Medicine
DX: F41.1 Generalized anxiety disorder (principal)
CPT/HCPCS: 36415; 84439; 84443

== ENCOUNTER → 2023-07-28 | Outpatient (CLI) | payer OTHER, SELFPAY ==
[2023-07-28 12:35] LABS: Absolute Lymphocyte Count 2.34 X10^3/uL (0.83-4.51); Absolute Neutrophil Count 5.3 X10^3/uL (2.0-7.7); Basophil% 1.1 % (0-1); Eosinophils% 4.6 % (0-5); Hematocrit 33.4 % (37-47); Hemoglobin 10.2 g/dL (12.0-15.0); Lymphocyte # 2.34 X10^3/ul (0.83-4.51); Lymphocyte % 26.8 % (19-41); Mean Corp Hgb Conc 30.5 g/dL (32-36); Mean Corpuscular Hgb 25.2 pg (27.0-32.0); Mean Corpuscular Volume 82.7 fL (81-99); Monocyte# 0.52 X10^3/uL; NRBC Flagged by Analyzer 0 % (0-5); Neutrophil # 5.34 X10^3/uL (2.7-7.7); Neutrophil % 61.2 % (47-70); Platelet Count 331 K/mm3 (150-450); RBC Distribution Width CV 15.9 % (11.6-14.6); RBC Distribution Width SD 48.1 fl (35.1-43.9); Red Blood Count 4.04 M/mm3 (4.2-5.4); White Blood Count 8.7 K/mm3 (4.4-11.0)
== END | disposition home or self-care (01) ==
LOC: BIMLAB 09:05
PROVIDERS: PCP Internal Medicine; Visit Provider Nurse Practitioner Women's Health
DX: N92.0 Excessive and frequent menstruation with regular cycle (principal)
CPT/HCPCS: 36415; 84443; 85025

== ENCOUNTER → 2023-08-04 | Outpatient (CLI) | payer OTHER, SELFPAY ==
--- NOTE | 2023-08-04 13:18 | US_ITS ---
INDICATION: bleeding EXAMINATION: Ultrasound US Pelvis Non OB Complete With Transvaginal Imaging TECHNIQUE: Transabdominal and transvaginal pelvic ultrasound was performed. Grayscale, spectral waveform, and color flow Doppler evaluation of the adnexa. COMPARISON: No relevant prior comparison study available FINDINGS: UTERUS: Anteverted. The uterus is somewhat heterogeneous measures 9.2 x 5.8 x 4.6 cm. There is no uterine mass. The endometrial stripe measures 5 mm in AP diameter which is within normal limits. There are small nabothian cysts in the cervix. RIGHT OVARY: The right ovary measures 2.8 x 1.9 x 1.3 cm. Non-enlarged, normal echogenicity. There is normal arterial inflow and venous outflow present in the right ovary. LEFT OVARY: The left ovary measures 3 x 2.3 x 2.2 cm. Non-enlarged, normal echogenicity. There is normal arterial inflow and venous outflow present in the left ovary. FREE FLUID: None. US/Pelvic w/ Transvaginal IMPRESSION: Unremarkable pelvic ultrasound. Electronically Signed: Atul Mallory MD at 14:52 EDT ,
== END | disposition home or self-care (01) ==
LOC: US 13:18
PROVIDERS: PCP Internal Medicine; Referring Provider Nurse Practitioner Women's Health; Visit Provider Nurse Practitioner Women's Health
DX: N93.9 Abnormal uterine and vaginal bleeding, unspecified (principal)
CPT/HCPCS: 76830; 76856

== ENCOUNTER → 2023-10-05 | Outpatient (CLI) | payer OTHER, SELFPAY ==
[2023-10-05 16:40] LABS: Absolute Lymphocyte Count 2.99 X10^3/uL (0.83-4.51); Absolute Neutrophil Count 3.9 X10^3/uL (2.0-7.7); Basophil# 0.07 X10^3/uL; Basophil% 0.9 % (0-1); Eosinophil# 0.38 X10^3/uL; Eosinophils% 4.8 % (0-5); Hematocrit 33.7 % (37-47); Hemoglobin 10.6 g/dL (12.0-15.0); Lymphocyte # 2.99 X10^3/ul (0.83-4.51); Lymphocyte % 37.5 % (19-41); Mean Corp Hgb Conc 31.5 g/dL (32-36); Mean Corpuscular Hgb 26.2 pg (27.0-32.0); Mean Corpuscular Volume 83.2 fL (81-99); Mean Platelet Vol. 9.7 fl (6.2-12.0); Monocyte# 0.64 X10^3/uL; NRBC Flagged by Analyzer 0 % (0-5); Neutrophil # 3.89 X10^3/uL (2.7-7.7); Neutrophil % 48.7 % (47-70); Platelet Count 315 K/mm3 (150-450); RBC Distribution Width CV 15.4 % (11.6-14.6); RBC Distribution Width SD 46.9 fl (35.1-43.9); Red Blood Count 4.05 M/mm3 (4.2-5.4)
[2023-10-05 17:08] LABS: ALB/GLOB Ratio 1.1 RATIO (0.9-2.4); AST(SGOT) 12 U/L (15-37); Alanine Aminotransfer ALT/SGPT 17 U/L (13-56); Albumin, Serum 3.7 g/dL (3.2-5.0); Alkaline Phosphatase 54 U/L (45-117); Anion Gap 5 (5-15); BUN 17 mg/dL (7-18); BUN/Creat Ratio 18.7 RATIO (10-20); Calcium,Total 8.8 mg/dL (8.5-10.1); Chloride 107 mmol/L (98-107); Cholesterol 198 mg/dL (200); Creatinine, Serum 0.91 mg/dL (0.55-1.02); EST Glomerular Filtration Rate 73 mL/min (>60); Est Glom Filt Rate - Afr Amer 88 mL/min (>60); Ferritin 6 ng/mL (8-252); Globulin 3.5 g/dL (2.2-4.2); Glucose 97 mg/dL (74-106); High Density Lipoprotein 57 mg/dL; Iron 34 ug/dL (50-170); Iron Binding Capacity,Total 459 ug/dL (250-450); Potassium 4.3 mmol/L (3.5-5.1); Protein, Total 7.2 g/dL (6.4-8.2); Sodium Level 139 mmol/L (136-145); Triglycerides 102 mg/dL; Very Low Density Lipoprotein 20 mg/dL (5-40)
== END | disposition home or self-care (01) ==
LOC: BIMLAB 15:55
PROVIDERS: PCP Internal Medicine; Visit Provider Internal Medicine
DX: D64.9 Anemia, unspecified (principal); I10 Essential (primary) hypertension
CPT/HCPCS: 36415; 80053; 80061; 82728; 83540; 83550; 85025

== ENCOUNTER → 2023-11-21 | Outpatient (CLI) | payer OTHER, SELFPAY ==
--- NOTE | 2023-11-21 11:14 | MRI_ITS ---
EXAM: MR LEFT LOWER EXTREMITY WITHOUT INTRAVENOUS CONTRAST, HIP CLINICAL INDICATION: Pain TECHNIQUE: Multiplanar and multisequence MR images of the left hip without intravenous contrast. COMPARISON: October 07, 2023 FINDINGS: TENDONS: FLEXORS: Unremarkable. Intact. EXTENSORS/HAMSTRING: Unremarkable. Intact. ABDUCTORS: Unremarkable. Intact. ADDUCTORS: Unremarkable. Intact. ROTATORS: Unremarkable. Intact. MUSCLES: Unremarkable. Normal bulk and signal. FLUID: Unremarkable. No joint effusion. No trochanteric bursitis. LABRUM: Unremarkable. No evidence of a tear on this non-arthrogram exam. CARTILAGE: Unremarkable. Articular cartilage intact. BONES/JOINTS: There is at least a small amount of left hip joint fluid with synovitis. Severe hypertrophic degenerative changes of the left hip joint with prominent subchondral cyst at the anterosuperior aspect of the left acetabular roof. Prominent subchondral cyst also seen at the anterosuperior right acetabular roof with overall mild to moderate osteoarthrosis at the right hip joint. Degenerative changes at multiple levels of the lumbar spine. No femoral neck fracture. No avascular necrosis of the femoral head. No sacral insufficiency fracture. No suspicious bone marrow signal alteration. OTHER SOFT TISSUES: Unremarkable. INTRAPERITONEAL SPACE: Small amount of free fluid in the pelvis is nonspecific. No adnexal masses. Benign appearance of the uterus. MRI/Lower Ext Joint Only (Routine) IMPRESSION: 1. Severe hypertrophic degenerative changes of the left hip joint with prominent subchondral cyst at the anterosuperior aspect of the left acetabular roof. 2. Benign appearance of the ovaries with no adnexal masses. Bladder is incompletely distended. Electronically Signed: Issa Terry MD at 23:10 EDT ,
== END | disposition home or self-care (01) ==
LOC: MRI 15:46
PROVIDERS: PCP Internal Medicine; Referring Provider Orthopaedic Surgery; Visit Provider Orthopaedic Surgery
DX: M25.552 Pain in left hip (principal)
CPT/HCPCS: 73721

== ENCOUNTER 2023-12-16 09:12 | Outpatient (RCR) | payer OTHER, SELFPAY ==
--- NOTE | 2023-12-16 10:29 | HP.PTEVAL_ITS ---
Patient's Visit Information Visit Information Visit Information: RUSS RAMIREZ is a 43 year old F referred to Physical Therapy by Dr. Edward Contreras DO with a diagnosis of L hip DJD. Date of Evaluation: 12/16/23 Physical Therapist: Patrick Thibodeaux, PT, ATC Visit Plan Plan: Pt is not a good candidate for skilled therapy at this time secondary to her severe pain and intolerance for movement. Reccomend pt to follow up with doctor EBONY Subjective Subjective: Pt reports she has had L hip pain since she was in high school. 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 Pt notes her pain became intermittent over the years. but never went away. Pt reports recently she was playing soccer with her kid where she fell and her legs spread apart. Pt notes she had xray and MRI which revealed severe DJD. Pt reports she is to see the doctor on Tuesday where she hopes she will be able to discuss surgery at that time. Pt notes she is severely limited with all aspects of life secondary to her pain. Pt reports she has children, one autistic, which she needs to be feeling better to take care of. L hip will catch and give out on her at times. 10/10 pain at worst. Pain L hip DJD: Pain Intensity (Out of 10): 10 Pain Intensity Range: 10 Objective Objective: Neuro: B LE sensation is WNL to light touch Gait: Pt ambulates with antalgic gait pattern. Unable to fully extend L knee. Significant limping on L LE. ROM: L hip flex and IR/ER severely limited and results in severe pain MMT: R hip is grossly 5/5 throughout. L hip is 3/5 and limited by pain Goals Goal 1:: N/A Rehabilitation Potential Physical Therapy Diagnosis: Pt has L hip pain, weakness, and limited ROM secondary to L hip DJD Rehabilitation Potential: Poor Anticipated Interventions Patient/Client Instruction: Educate patient on: Condition and Plan of Care For the Purpose of:: To improve self management Text: Thank you for the opportunity to evaluate your patient. For Medicare and Medicare HMO plans, please review the plan of care and approve it. It will need to be FAXED BACK to us at [phone] for Medicare purposes. For Medicare only, by signing this I certify the plan of care. Please let me know if there are questions or concerns regarding this plan of care. Physician Signature: Date:
--- NOTE | 2023-12-16 10:30 | HP.PTEVAL_ITS ---
Patient's Visit Information Visit Information Visit Information: RUSS RAMIREZ is a 43 year old F referred to Physical Therapy by Dr. Edward Contreras DO with a diagnosis of L hip DJD. Date of Evaluation: 12/16/23 Physical Therapist: Patrick Thibodeaux, PT, ATC Visit Plan Plan: Pt is not a good candidate for skilled therapy at this time secondary to her severe pain and intolerance for movement. Reccomend pt to follow up with doctor EBONY Subjective Subjective: Pt reports she has had L hip pain since she was in high school. 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 Pt notes her pain became intermittent over the years. but never went away. Pt reports recently she was playing soccer with her kid where she fell and her legs spread apart. Pt notes she had xray and MRI which revealed severe DJD. Pt reports she is to see the doctor on Tuesday where she hopes she will be able to discuss surgery at that time. Pt notes she is severely limited with all aspects of life secondary to her pain. Pt reports she has children, one autistic, which she needs to be feeling better to take care of. L hip will catch and give out on her at times. 10/10 pain at worst. Pain L hip DJD: Pain Intensity (Out of 10): 10 Pain Intensity Range: 10 Objective Objective: Neuro: B LE sensation is WNL to light touch Gait: Pt ambulates with antalgic gait pattern. Unable to fully extend L knee. Significant limping on L LE. ROM: L hip flex and IR/ER severely limited and results in severe pain MMT: R hip is grossly 5/5 throughout. L hip is 3/5 and limited by pain Goals Goal 1:: N/A Rehabilitation Potential Physical Therapy Diagnosis: Pt has L hip pain, weakness, and limited ROM secondary to L hip DJD Rehabilitation Potential: Poor Anticipated Interventions Patient/Client Instruction: Educate patient on: Condition and Plan of Care For the Purpose of:: To improve self management Text: Thank you for the opportunity to evaluate your patient. For Medicare and Medicare HMO plans, please review the plan of care and approve it. It will need to be FAXED BACK to us at [phone] for Medicare purposes. For Medicare only, by signing this I certify the plan of care. Please let me know if there are questions or concerns regarding this plan of care. Physician Signature: Date:
--- NOTE | 2024-02-06 16:30 | HP.PT.NRP ---
Patient Information Patient Information: RUSS RAMIREZ was seen in my office for initial evaluation on 12/16/23. The following Plan of Care was established for this patient: Anticipated Interventions Patient/Client Instruction: Educate patient on: Condition and Plan of Care For the Purpose of:: To improve self management Last Seen Last Seen: This patient was last seen in our office . Pertinent comments regarding their Physical therapy will appear below: Discharge At this point I will be discontinuing this patient from physical therapy. I would be happy to see this patient again in the future if found appropriate by the physician. Thank you! Patrick Thibodeaux, PT, ATC
== END 2023-12-16 19:00 | disposition home or self-care (01) ==
LOC: PT 09:12
PROVIDERS: PCP Internal Medicine; Referring Provider Orthopaedic Surgery; Visit Provider Orthopaedic Surgery
DX: M16.12 Unilateral primary osteoarthritis, left hip (principal)
CPT/HCPCS: 97161

== ENCOUNTER → 2024-03-12 | Outpatient (CLI) | payer OTHER, SELFPAY ==
--- NOTE | 2024-03-12 16:44 | CT_ITS ---
EXAM: CT BILATERAL LOWER EXTREMITIES WITHOUT INTRAVENOUS CONTRAST CLINICAL INDICATION: templating for left ASHU -- schedule within 6 weeks of surgery TECHNIQUE: Helically acquired images were obtained of the bilateral lower extremities without intravenous contrast. 2-D reformats were performed by the technologist. CTDIvol = ( 23.81 ) mGy, DLP = ( 1227.34 ) mGycm This CT exam was performed using one or more of the following dose reduction techniques: automated exposure control, adjustment of the mA and/or kV according to patient size, and/or use of iterative reconstruction technique. COMPARISON: No relevant prior studies available. FINDINGS: BONES/JOINTS: Severe osteoarthritis of the left hip joint with prominent subchondral cyst on both sides of the articulation. Corticated ossific fragment adjacent to the left acetabulum posterior superiorly/inferiorly could represent a old nonunited previously fractured osteophyte. Moderate osteoarthritic changes involving the right hip with prominent subchondral cysts on only the the acetabular side. Overall moderate left and [id number] right hip joint femorotibial osteoarthrosis. No acute or healing fracture or malalignment. No unusual lytic or sclerotic lesions of bone. SOFT TISSUES: Unremarkable. No soft tissue swelling or gas. No radiopaque foreign body. CT/Extremity Lower without Contra IMPRESSION: Preoperative planning study for left total hip arthroplasty. 1. No acute or healing fracture or malalignment. 2. Severe osteoarthritis of the left hip joint with prominent subchondral cyst on both sides of the articulation. Corticated ossific fragment adjacent to the left acetabulum posterior superiorly/inferiorly may represent an old nonunited previously fractured osteophyte. Electronically Signed: Issa Terry MD at 3:35 EDT ,
--- OUTSIDE RECORDS SUMMARY | 2024-03-12 20:02 | XMS RPT_ITS | CCD ---
Author Organization [facility] CliniSyhi Care Team Providers Care [employer] Teacher Name Role Phone YANIRA GARCIA Unavailable Unavailable PHYSICIAN, NONE Unavailable Unavailable PHYSICIAN, NONE Unavailable Unavailable YANIRA GARCIA Unavailable Unavailable NICK DOYLE Referring Unavailable HEDY DELGADO ([facility]) Referring Unavailable Allergies Allergy Classification Reported Allergen(s) Allergy Type Date of Onset Reaction(s) Facility (1 source) Penicillins; Translations: [PENICILLINS] Propensity to adverse reactions to drug (disorder) 5 [facility] Repository Problems Problem Classification Problem Date Documented Da te Episodic/Chronic Other non-traumatic joint disorders (1 source) Pain in right ankle and joints of right foot; Translations: [Pain in right ankle and joints of right foot] Onset: 07-12-2018 Episodic Results Test Name Value Interpretation Reference Range Facil mary FORDon 09-11-2018 CNOV Office Visit ([facility] ) -------- ROSEMARIE RAMIREZ ([id number]) 1980 F Date Time Provider Department 09/11/18 7:30 AM VIVIAN HENSON ([facility]) [facility] During your visit today, we recorded the following information about you: Temperature Pulse Respiration Blood pressure 98.1 degrees 84/minute 16/minute 128/82 Weight 119.3 kg Vivian Henson APRN.CNP 09/11/2018 8:40 AM Signed Subjective HPI Rosemarie Ramirez is a 38 year old female who presents with cough, chest congestion, wheezing for the past week. She feels like her ears are plugged. She has taken zyrtec and flonase and inhaler at home. Review of Systems Constitutional: Negative. Negative for fever. HENT: Positive for congestion, ear pain and hearing loss. Negative for sore throat. Respiratory: Positive for cough, shortness of breath and wheezing. Negative for sputum production. Cardiovascular: Negative. Neurological: Positive for headaches. BP 128/82 Pulse 84 Temp 36.7 ?C (98.1 ?F) (Tympanic) Resp 16 Wt 119.3 kg (263 lb) SpO2 96% PAST MEDICAL HISTORY Diagnosis Date - NEGATIVE MEDICAL HISTORY PAST SURGICAL HISTORY Procedure Laterality Date - NONE ALLERGIES Penicillins MEDICATIONS albuterol HFA (PROAIR HFA) 90 mcg/actuation inhaler Inhale 2 Puffs as instructed every 4 hours as needed. benzonatate (TESSALON PERLE) 100 mg capsule Take 1-2 capsules tid prn fluticasone (FLONASE) 50 mcg/actuation nasal spray Use 2 Sprays in each nostril once daily. Rinse mouth after use. cetirizine (ZYRTEC) 10 mg tablet Take 1 tablet by mouth once daily. guaiFENesin (MUCINEX) 600 mg 12 hr tablet Take 2 tablets by mouth twice daily. No family history on file. Social History Tobacco Use - Smoking status: Current Every Day Smoker - Smokeless tobacco: Never Used Substance Use Topics - Alcohol use: Not on file - Drug use: Not on file Objective Physical Exam Constitutional: She is well-developed, well-nourished, and in no distress. HENT: Right Ear: External ear and ear canal normal. Tympanic membrane is injected. A middle ear effusion is present. Left Ear: Tympanic membrane, external ear and ear canal normal. Nose: Mucosal edema and rhinorrhea present. Mouth/Throat: Uvula is midline, oropharynx is clear and moist and mucous membranes are normal. No posterior oropharyngeal edema or posterior oropharyngeal erythema. Neck: Neck supple. Cardiovascular: Normal rate, regular rhythm and normal heart sounds. Pulmonary/Chest: Effort normal. No respiratory distress. She has wheezes in the right upper field, the right middle field, the right lower field, the left upper field, the left middle field and the left lower field. She has no rales. SpO2 96% Post albuterol: lungs with improved sounds and SpO2 100% Lymphadenopathy: She has no cervical adenopathy. Neurological: She is alert. Skin: Skin is warm and dry. No rash noted. Nursing note and vitals reviewed. ASSESSMENT/PLAN: 1. Sinobronchitis - ICD9: 473.9, 490, ICD10: J32.9, J40 (primary diagnosis) - Will begin treatment with Zithromax pack as directed - The patient should also be given mucinex for the first 5-7 days of treatment. - Supportive care with plenty of fluids, rest, and analgesia prn. - AZITHROMYCIN 250 MG TABLET - ALBUTEROL SULFATE HFA 90 MCG/ACTUATION AEROSOL INHALER - METHYLPREDNISOLONE 4 MG TABLETS IN A DOSE PACK 2. Wheezing - ICD9: 786.07, ICD10: R06.2 - ALBUTEROL SULFATE 2.5 MG/3 ML (0.083 %) SOLUTION FOR NEBULIZATION 3. Other acute nonsuppurative otitis media of right ear, recurrence not specified - ICD9: 381.00, ICD10: H65.191 - Will begin treatment with Zithromax pack as directed - Supportive care with plenty of fluids, rest, and analgesia prn. - AZITHROMYCIN 250 MG TABLET - Follow-up with your PCP in 3-5 days if symptoms have not improved or sooner if symptoms worsen - Discussed red flags and need for immediate medical evaluation if any occur. - Discussed supportive care treatment with fluids, rest and analgesia. - Discussed expected course of illness KYLE Weber APRN.CNP 09/11/2018 8:08 AM Addendum ASSESSMENT/PLAN: 1. Sinobronchitis - ICD9: 473.9, 490, ICD10: J32.9, J40 (primary diagnosis) - Will begin treatment with Zithromax pack as directed - The patient should also be given mucinex for the first 5-7 days of treatment. - Supportive care with plenty of fluids, rest, and analgesia prn. - AZITHROMYCIN 250 MG TABLET - ALBUTEROL SULFATE HFA 90 MCG/ACTUATION AEROSOL INHALER - METHYLPREDNISOLONE 4 MG TABLETS IN A DOSE PACK 2. Wheezing - ICD9: 786.07, ICD10: R06.2 - ALBUTEROL SULFATE 2.5 MG/3 ML (0.083 %) SOLUTION FOR NEBULIZATION 3. Other acute nonsuppurative otitis media of right ear, recurrence not specified - ICD9: 381.00, ICD10: H65.191 - Will begin treatment with Zithromax pack as directed - Supportive care with plenty of fluids, rest, and analgesia prn. - AZITHROMYCIN 250 MG TABLET - Follow-up with your PCP in 3-5 days if symptoms have not improved or sooner if symptoms worsen - Discussed red flags and need for immediate medical evaluation if any occur. - Discussed supportive care treatment with fluids, rest and analgesia. - Discussed expected course of illness Vivian Henson, SACHIN.WET PROCESS ASSISTANT HEAD MILLER ACUTE BRONCHITIS: You have acute bronchitis. This means the airway passages in your lungs are inflamed. Bronchitis may be caused by viruses or bacteria. Inhaling cigarette smoke will always make it worse. Exposure to irritating chemicals or second hand smoke as well as allergies can contribute to bronchitis. Repeat episodes of bronchitis may cause lifelong lung problems. Acute bronchitis is usually treated with rest, fluids, cough medicine, and possibly antibiotics or inhaled medicine to open up the small airways. It is very important that you avoid smoke and drink increased amounts of fluids. A cool air vaporizer can help thin bronchial secretions. This makes it easier to cough and clear your chest. If you are a cigarette smoker, consider using nicotine gum or skin patches to help you withdraw. Recovery from bronchitis is often slow, but you should start feeling better after 2-3 days of treatment. Please call your doctor or return here if you have any of the following symptoms: - Increased fever, chills, or chest pain. - Severe shortness of breath or bloody sputum. - Do not improve after 3 days of proper treatment. OTITIS MEDIA GENERAL INFORMATION: Otitis media is an infection of the middle ear. The middle ear sits behind the eardrum. This infection may be caused by a virus or bacteria and often follows a cold. Children often have repeat ear infections. Otitis media is not contagious. INSTRUCTIONS: 1. An antibiotic has been prescribed. It should be taken exactly as prescribed. Do not stop the medicine even if the symptoms go away. 2. Wtbi-rzd-ommprdu pain medication may be taken or other pain medication as prescribed by the doctor. 3. Nothing should be placed in the ear unless instructed by your doctor. 4. The patient may return to school/daycare or work when the temperature is normal (98.6 F or 37 C). 5. The patient should not swim while the ear is infected. CONTACT YOUR DOCTOR IF YOU OR YOUR CHILD: 1. Does not feel better within 36 hours. 2. Develops a temperature over 102E F (39E C). 3. Starts vomiting or has diarrhea. 4. Develops drainage from the affected ear. 5. Has any new problem that may be related to the medicine prescribed. RETURN TO THE ED IF: 1. You or your child has a severe headache or pain around the ear. 2. You or your child notice swelling around the ear. 3. You or your child has a seizure (convulsion), twitching of the facial muscles, or passes out. 4. You or your child is dizzy, has a stiff neck, or cannot walk or talk normally. 5. Your child becomes more irritable or listless (not interested in his or her surroundings, does not get soothed by you holding him or her). Melani Lopez LPN 09/11/2018 8:42 AM Signed 2.5 solution aerosol treatment given per doctor's orders. Prior to treatment O2 Sat is 96%. Treatment completed. O2 sat is 100%. Tolerated well.Melani Lopez LPN Referring Provider: SELF [[id number]] Allergies As of Date: 09/11/2018 Noted Allergy Reaction PENICILLINS 02/25/2015 16 - Unknown Date Reviewed: 09/11/2018 Reviewed by: Vivian ([facility]) Natividad - Fully Assessed Reason for Visit: Chest Congestion [236] Cmt: cough x 1 week Primary Visit Diagnosis:Sinobronchitis [J32.9, J40] Other Visit Diagnoses:Wheezing [R06.2] Other acute nonsuppurative otitis media of right ear, recurrence not specified [H65.191] Order(s):[] albuterol 2.5 mg /3 mL (0.083 %) 2.5 mg (PROVENTIL)Disp: Rfl: azithromycin (ZITHROMAX) 250 mg tabletTake 2 tablets by mouth once daily for 1 day, THEN 1 tablet once daily for 4 days.Disp: 6 tabletRfl: 0 albuterol HFA (VENTOLIN HFA) 90 mcg/actuation inhalerInhale 2 Puffs as instructed every 4 hours as needed for Wheezing/Shortness of Breath.Disp: 1 InhalerRfl: 0 methylPREDNISolone (MEDROL DOSE-PACK) 4 mg Dose-PackAs Instructed per packageDisp: 1 PackageRfl: 0 Prescriptions as of 09/11/2018 Sig: BENZONATATE 100 MG CAPSULE Take 1-2 capsules tid prn FLUTICASONE PROPIONATE 50 MCG* Use 2 Sprays in each nostril * CETIRIZINE 10 MG TABLET Take 1 tablet by mouth once d* AZITHROMYCIN 250 MG TABLET Take 2 tablets by mouth once * ALBUTEROL SULFATE HFA 90 MCG/* Inhale 2 Puffs as instructed * METHYLPREDNISOLONE 4 MG TABLE* As Instructed per package Problem List As Of Date: 09/11/2018 (None) Other instructions from your clinician: ASSESSMENT/PLAN: 1. Sinobronchitis - ICD9: 473.9, 490, ICD10: J32.9, J40 (primary diagnosis) - Will begin treatment with Zithromax pack as directed - The patient should also be given mucinex for the first 5-7 days of treatment. - Supportive care with plenty of fluids, rest, and analgesia prn. - AZITHROMYCIN 250 MG TABLET - ALBUTEROL SULFATE HFA 90 MCG/ACTUATION AEROSOL INHALER - METHYLPREDNISOLONE 4 MG TABLETS IN A DOSE PACK 2. Wheezing - ICD9: 786.07, ICD10: R06.2 - ALBUTEROL SULFATE 2.5 MG/3 ML (0.083 %) SOLUTION FOR NEBULIZATION 3. Other acute nonsuppurative otitis media of right ear, recurrence not specified - ICD9: 381.00, ICD10: H65.191 - Will begin treatment with Zithromax pack as directed - Supportive care with plenty of fluids, rest, and analgesia prn. - AZITHROMYCIN 250 MG TABLET - Follow-up with your PCP in 3-5 days if symptoms have not improved or sooner if symptoms worsen - Discussed red flags and need for immediate medical evaluation if any occur. - Discussed supportive care treatment with fluids, rest and analgesia. - Discussed expected course of illness Vivian Henson APRN.WET PROCESS ASSISTANT HEAD MILLER ACUTE BRONCHITIS: You have acute bronchitis. This means the airway passages in your lungs are inflamed. Bronchitis may be caused by viruses or bacteria. Inhaling cigarette smoke will always make it worse. Exposure to irritating chemicals or second hand smoke as well as allergies can contribute to bronchitis. Repeat episodes of bronchitis may cause lifelong lung problems. Acute bronchitis is usually treated with rest, fluids, cough medicine, and possibly antibiotics or inhaled medicine to open up the small airways. It is very important that you avoid smoke and drink increased amounts of fluids. A cool air vaporizer can help thin bronchial secretions. This makes it easier to cough and clear your chest. If you are a cigarette smoker, consider using nicotine gum or skin patches to help you withdraw. Recovery from bronchitis is often slow, but you should start feeling better after 2-3 days of treatment. Please call your doctor or return here if you have any of the following symptoms: - Increased fever, chills, or chest pain. - Severe shortness of breath or bloody sputum. - Do not improve after 3 days of proper treatment. OTITIS MEDIA GENERAL INFORMATION: Otitis media is an infection of the middle ear. The middle ear sits behind the eardrum. This infection may be caused by a virus or bacteria and often follows a cold. Children often have repeat ear infections. Otitis media is not contagious. INSTRUCTIONS: 1. An antibiotic has been prescribed. It should be taken exactly as prescribed. Do not stop the medicine even if the symptoms go away. 2. Lklj-syn-xjihebf pain medication may be taken or other pain medication as prescribed by the doctor. 3. Nothing should be placed in the ear unless instructed by your doctor. 4. The patient may return to school/daycare or work when the temperature is normal (98.6 F or 37 C). 5. The patient should not swim while the ear is infected. CONTACT YOUR DOCTOR IF YOU OR YOUR CHILD: 1. Does not feel better within 36 hours. 2. Develops a temperature over 102E F (39E C). 3. Starts vomiting or has diarrhea. 4. Develops drainage from the affected ear. 5. Has any new problem that may be related to the medicine prescribed. RETURN TO THE ED IF: 1. You or your child has a severe headache or pain around the ear. 2. You or your child notice swelling around the ear. 3. You or your child has a seizure (convulsion), twitching of the facial muscles, or passes out. 4. You or your child is dizzy, has a stiff neck, or cannot walk or talk normally. 5. Your child becomes more irritable or listless (not interested in his or her surroundings, does not get soothed by you holding him or her). Visit Notes: >> Melani Pollardmilan PELLETIER TueSep 11, 2018 8:41 AM Status: Signed 2.5 solution aerosol treatment given per doctor's orders. Prior to treatment O2 Sat is 96%. Treatment completed. O2 sat is 100%. Tolerated well.Melani Pollardorvilleheather LIYAH Prescriptions ordered this encounter Disp Refills Start End ALBUTEROL SULFATE 2.5 MG/3 ML (0.083* 09/11/2018 09/11/2018 Route: INHALATION AZITHROMYCIN 250 MG TABLET 6 ta* 0 09/11/2018 09/16/2018 Route: ORAL Sig: Take 2 tablets by mouth once daily for 1 day, THEN 1 tablet once daily for 4 days. ALBUTEROL SULFATE HFA 90 MCG/ACTUATI* 1 In* 0 09/11/2018 Cmt: Dispense ProAir HFA: Brand or Generic Ok Route: INHALATION Sig: Inhale 2 Puffs as instructed every 4 hours as needed for Wheezing/Shortness of Breath. METHYLPREDNISOLONE 4 MG TABLETS IN A* 1 Pa* 0 09/11/2018 Sig: As Instructed per package Medications Discontinued During This Encounter guaiFENesin (MUCINEX) 600 mg 12 hr t* 24 t* 0 08/22/2018 09/11/2018 Route: ORAL Sig: Take 2 tablets by mouth twice daily. Patient not taking: Reported on 09/11/2018 Disc: Reason for discontinue is not on file. albuterol HFA (PROAIR HFA) 90 mcg/ac* 1 In* 0 08/22/2018 09/11/2018 Cmt: Dispense ProAir HFA: Brand or Generic Ok Route: INHALATION Sig: Inhale 2 Puffs as instructed every 4 hours as needed. Disc: Reason for discontinue is not on file. Encounter Status:Closed by VIVIAN HENSON on 09/11/18 [facility] PROGRESSon 09-11-2018 Protein mass conc HNO ID: [id number] Author: Vivian ([facility]) Natividad Service: ? Author Type: Nurse Practitioner Type: Progress Notes Filed: 09/11/2018 8:40 AM Note Text: Subjective HPI Rosemarie Ramirez is a 38 year old female who presents with cough, chest congestion, wheezing for the past week. She feels like her ears are plugged. She has taken zyrtec and flonase and inhaler at home. Review of Systems Constitutional: Negative. Negative for fever. HENT: Positive for congestion, ear pain and hearing loss. Negative for sore throat. Respiratory: Positive for cough, shortness of breath and wheezing. Negative for sputum production. Cardiovascular: Negative. Neurological: Positive for headaches. BP 128/82 Pulse 84 Temp 36.7 ?C (98.1 ?F) (Tympanic) Resp 16 Wt 119.3 kg (263 lb) SpO2 96% PAST MEDICAL HISTORY Diagnosis Date - NEGATIVE MEDICAL HISTORY PAST SURGICAL HISTORY Procedure Laterality Date - NONE ALLERGIES Penicillins MEDICATIONS albuterol HFA (PROAIR HFA) 90 mcg/actuation inhaler Inhale 2 Puffs as instructed every 4 hours as needed. benzonatate (TESSALON PERLE) 100 mg capsule Take 1-2 capsules tid prn fluticasone (FLONASE) 50 mcg/actuation nasal spray Use 2 Sprays in each nostril once daily. Rinse mouth after use. cetirizine (ZYRTEC) 10 mg tablet Take 1 tablet by mouth once daily. guaiFENesin (MUCINEX) 600 mg 12 hr tablet Take 2 tablets by mouth twice daily. No family history on file. Social History Tobacco Use - Smoking status: Current Every Day Smoker - Smokeless tobacco: Never Used Substance Use Topics - Alcohol use: Not on file - Drug use: Not on file Objective Physical Exam Constitutional: She is well-developed, well-nourished, and in no distress. HENT: Right Ear: External ear and ear canal normal. Tympanic membrane is injected. A middle ear effusion is present. Left Ear: Tympanic membrane, external ear and ear canal normal. Nose: Mucosal edema and rhinorrhea present. Mouth/Throat: Uvula is midline, oropharynx is clear and moist and mucous membranes are normal. No posterior oropharyngeal edema or posterior oropharyngeal erythema. Neck: Neck supple. Cardiovascular: Normal rate, regular rhythm and normal heart sounds. Pulmonary/Chest: Effort normal. No respiratory distress. She has wheezes in the right upper field, the right middle field, the right lower field, the left upper field, the left middle field and the left lower field. She has no rales. SpO2 96% Post albuterol: lungs with improved sounds and SpO2 100% Lymphadenopathy: She has no cervical adenopathy. Neurological: She is alert. Skin: Skin is warm and dry. No rash noted. Nursing note and vitals reviewed. ASSESSMENT/PLAN: 1. Sinobronchitis - ICD9: 473.9, 490, ICD10: J32.9, J40 (primary diagnosis) - Will begin treatment with Zithromax pack as directed - The patient should also be given mucinex for the first 5-7 days of treatment. - Supportive care with plenty of fluids, rest, and analgesia prn. - AZITHROMYCIN 250 MG TABLET - ALBUTEROL SULFATE HFA 90 MCG/ACTUATION AEROSOL INHALER - METHYLPREDNISOLONE 4 MG TABLETS IN A DOSE PACK 2. Wheezing - ICD9: 786.07, ICD10: R06.2 - ALBUTEROL SULFATE 2.5 MG/3 ML (0.083 %) SOLUTION FOR NEBULIZATION 3. Other acute nonsuppurative otitis media of right ear, recurrence not specified - ICD9: 381.00, ICD10: H65.191 - Will begin treatment with Zithromax pack as directed - Supportive care with plenty of fluids, rest, and analgesia prn. - AZITHROMYCIN 250 MG TABLET - Follow-up with your PCP in 3-5 days if symptoms have not improved or sooner if symptoms worsen - Discussed red flags and need for immediate medical evaluation if any occur. - Discussed supportive care treatment with fluids, rest and analgesia. - Discussed expected course of illness Vivian Henson, SACHIN.[facility] PROGRESSon 08-23-2018 Protein mass conc HNO ID: [id number] Author: Marilee Hanna (Rt) Service: ? 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 PATIENT GENDER DATA: Female. status: : No status: NO. PATIENT RELEVANT IMPLANT DATA REVIEWED: Not Applicable RADIOLOGY DEPARTMENT: General X-ray: Exam(s) Completed: Chest X-Ray PERIPHERAL IV DATA: Not applicable SIGNED BY: RT Cyndi August 23, 2018 5:03 PM [facility] XR CHEST 2V FRONTAL/LATon XR CHEST 2V FRONTAL/LAT * * *Final Report* * * DATE OF EXAM: Aug 23 2018 5:02PM WOX [id number] - XR CHEST 2V FRONTAL/LAT / PROCEDURE REASON: multiple diagnoses * * * * Physician Interpretation * * * * XR CHEST 2V FRONTAL/LAT Exam Date/Time: 08/23/2018 5:02 PM Clinical History: Wheezing Cough M: XC2_5 Comparison: none RESULT: LINES, TUBES, AND DEVICES: None. CARDIOMEDIASTINAL SILHOUETTE: The cardiac and mediastinal silhouettes appear unremarkable. LUNGS AND PLEURA: No consolidation. No pleural effusion. No pulmonary vascular congestion. OTHER: N/A IMPRESSION: No acute cardiopulmonary process. 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 Transcribe Date/Time: Aug 23 2018 5:05P Dictated by : FARAZ DUNHAM MD This examination was interpreted and the report reviewed and electronically signed by: FARAZ DUNHAM MD on Aug 23 2018 5:06PM EST [id number] [facility] CNOVon 08-22-2018 CNOV Office Visit ([facility] ) -------- RAMIREZROSEMARIE ([id number]) 1980 F Date Time Provider Department 08/22/18 7:30 PM [facility] During your visit today, we recorded the following information about you: Temperature Pulse Respiration Blood pressure 99 degrees 90/minute 18/minute 136/84 Weight 119.7 kg 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 ASSISTANT HEAD MILLER 08/22/2018 7:56 PM Signed Subjective The history is provided by the patient. No speech language pathology assistant was used. RITU Heath Ramirez is a 38 year old female who presents today for CC of cough and chest congestion. This started about 5-6 daysag. She is also having nasal congestion and wheezing. She was seen on 08/03/18 and diagnosed with sinusitis took 10 days of doxycycline, which she states slightly improved for about 2-3 days, and then came back and now worsened symptoms. 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 BP 136/84 Pulse 90 Temp 37.2 ?C (99 ?F) (Tympanic) Resp 18 Wt 119.7 kg (264 lb) SpO2 97% Social History Socioeconomic History Marital status: Spouse name: Not on file Number of children: Not on file Years of education: Not on file Highest education level: Not on file Social Needs Financial resource strain: Not on file Food insecurity - worry: Not on file Food insecurity - inability: Not on file Transportation needs - medical: Not on file Transportation needs - non-medical: Not on file Occupational History Not on file Tobacco Use Smoking status: Current Every Day Smoker Smokeless tobacco: Never Used Substance and Sexual Activity Alcohol use: Not on file Drug use: Not on file Sexual activity: Not on file Other Topics Concerns: Not on file Social History Narrative Not on file PAST MEDICAL HISTORY Diagnosis Date - NEGATIVE MEDICAL HISTORY I have confirmed and edited as necessary, the [facility] Review of Systems Constitutional: Negative for chills and fever. HENT: Positive for congestion (chest). Negative for ear pain, sinus pain and sore throat. Respiratory: Positive for cough. Negative for sputum production, shortness of breath and wheezing. Cardiovascular: Negative for chest pain. Musculoskeletal: Negative for myalgias. Neurological: Negative for headaches. Objective Physical Exam Constitutional: She is well-developed, well-nourished, and in no distress. HENT: Head: Normocephalic and atraumatic. Right Ear: External ear and ear canal normal. Tympanic membrane is bulging. A middle ear effusion (serous) is present. Left Ear: Ear canal normal. Tympanic membrane is bulging. A middle ear effusion (serous) is present. Nose: Mucosal edema and rhinorrhea present. Right sinus exhibits no maxillary sinus tenderness and no frontal sinus tenderness. Left sinus exhibits no maxillary sinus tenderness and no frontal sinus tenderness. Mouth/Throat: Uvula is midline, oropharynx is clear and moist and mucous membranes are normal. No oropharyngeal exudate, posterior oropharyngeal edema, posterior oropharyngeal erythema or tonsillar abscesses. Pulmonary/Chest: Effort normal. She has no decreased breath sounds. She has wheezes. She has no rhonchi. She has no rales. Albuterol nebulizer treatment done, decrease in wheezing, and increase in PO2 - 98% Lymphadenopathy: Head (right side): No submental, no submandibular and no tonsillar adenopathy present. Head (left side): No submental, no submandibular and no tonsillar adenopathy present. She has no cervical adenopathy. Neurological: She is alert. Skin: Skin is warm and dry. Psychiatric: Affect normal. Nursing note and vitals reviewed. ASSESSMENT/PLAN: 1. Wheezing - ICD9: 786.07, ICD10: R06.2 (primary diagnosis) - Discussed use of Prednisone 5 day course and albuterol inhaler as needed for cough, wheeze, shortness of breath * Prednisone 40 mg (2 tablets) per day for 5 days, take in morning or early in day * Do not NSAIDs during this 5 day course (ibuprofen, naproxen, Motrin, Aleve, Advil) Tylenol only during prednisone use * Follow up with primary care provider if no improvement with treatmen * Seek medical care immediately, call 911, go to ER if you have chest pain, difficulty breathing, shortness of breath, inability to swallow. - ALBUTEROL SULFATE 2.5 MG/3 ML (0.083 %) SOLUTION FOR NEBULIZATION - XR CHEST 2V FRONTAL/LAT 2. Cough - ICD9: 786.2, ICD10: R05 Rest, increase water intake Motrin or Tylenol as needed for fever or pain. Salt water gargles, chloraseptic spray or lozenges as needed for sore throat. Warm beverages, honey. Nasal saline spray as needed Cool mist humidifier at night Tylenol (generic acetaminophen) 500 mg-2 tabs every 8 hrs. as needed for fever and aches Ibuprofen 600 mg (3-200mg tablets) every 6 hours -Mucinex (generic is fine) Guaifenesin 1200 mg twice daily to help with cough and to thin out mucus - XR CHEST 2V FRONTAL/LAT - return tomorrow between 8 am - 630 pm for chest xr will call with results, and add antibiotic if needed. 3. Nasal congestion - ICD9: 478.19, ICD10: R09.81 Zyrtec 10 mg By mouth daily at bedtime Flonase or Nasonex 1 spray each nostril two times a day. Diagnosis and treatment plan were discussed and questions were answered to the patient's satisfaction. Pt acknowledged understanding of concepts and follow up plan. Specific signs and symptoms that would indicate the need for higher level of care were discussed in detail warranting prompt ER evaluation. Hedy Delgado APRN.PROSPER Krishnamurthy Ma 08/22/2018 7:47 PM Signed 2.5 solution aerosol treatment given per doctor's orders. Prior to treatment O2 Sat is 97%. Treatment completed. O2 sat is 98%. Tolerated well. Trinidad Delgado APRN.PROSPER 08/22/2018 7:55 PM Addendum ASSESSMENT/PLAN: 1. Wheezing - ICD9: 786.07, ICD10: R06.2 (primary diagnosis) - Discussed use of Prednisone 5 day course and albuterol inhaler as needed for cough, wheeze, shortness of breath * Prednisone 40 mg (2 tablets) per day for 5 days, take in morning or early in day * Do not NSAIDs during this 5 day course (ibuprofen, naproxen, Motrin, Aleve, Advil) Tylenol only during prednisone use * Follow up with primary care provider if no improvement with treatmen * Seek medical care immediately, call 911, go to ER if you have chest pain, difficulty breathing, shortness of breath, inability to swallow. - ALBUTEROL SULFATE 2.5 MG/3 ML (0.083 %) SOLUTION FOR NEBULIZATION - XR CHEST 2V FRONTAL/LAT 2. Cough - ICD9: 786.2, ICD10: R05 Rest, increase water intake Motrin or Tylenol as needed for fever or pain. Salt water gargles, chloraseptic spray or lozenges as needed for sore throat. Warm beverages, honey. Nasal saline spray as needed Cool mist humidifier at night Tylenol (generic acetaminophen) 500 mg-2 tabs every 8 hrs. as needed for fever and aches Ibuprofen 600 mg (3-200mg tablets) every 6 hours -Mucinex (generic is fine) Guaifenesin 1200 mg twice daily to help with cough and to thin out mucus - XR CHEST 2V FRONTAL/LAT - return tomorrow between 8 am - 630 pm for chest xr will call with results, and add antibiotic if needed. 3. Nasal congestion - ICD9: 478.19, ICD10: R09.81 Zyrtec 10 mg By mouth daily at bedtime Flonase or Nasonex 1 spray each nostril two times a day. Referring Provider: SELF [200] Allergies As of Date: 08/22/2018 Noted Allergy Reaction PENICILLINS 02/25/2015 16 - Unknown Date Reviewed: 08/22/2018 Reviewed by: Trinidad Krishnamurthy Ma - Fully Assessed Reason for Visit: Chest Congestion [236] Cmt: cough x 1 week, dx with sinus infection on 08/03 given doxycycline Primary Visit Diagnosis:Wheezing [R06.2] Other Visit Diagnoses:Cough [R05] Nasal congestion [R09.81] Order(s):[] albuterol 2.5 mg /3 mL (0.083 %) 2.5 mg (PROVENTIL)Disp: Rfl: XR CHEST 2V FRONTAL/LAT [[id number]] Order #: [id number] albuterol HFA (PROAIR HFA) 90 mcg/actuation inhalerInhale 2 Puffs as instructed every 4 hours as needed.Disp: 1 InhalerRfl: 0 benzonatate (TESSALON PERLE) 100 mg capsuleTake 1-2 capsules tid prnDisp: 30 capsuleRfl: 0 predniSONE (DELTASONE) 20 mg tabletTake 2 tablets by mouth once daily for 5 days.Disp: 10 tabletRfl: 0 guaiFENesin (MUCINEX) 600 mg 12 hr tabletTake 2 tablets by mouth twice daily.Disp: 24 tabletRfl: 0 fluticasone (FLONASE) 50 mcg/actuation nasal sprayUse 2 Sprays in each nostril once daily. Rinse mouth after use.Disp: 1 BottleRfl: 0 cetirizine (ZYRTEC) 10 mg tabletTake 1 tablet by mouth once daily.Disp: 30 tabletRfl: 0 Prescriptions as of 08/22/2018 Sig: ALBUTEROL SULFATE HFA 90 MCG/* Inhale 2 Puffs as instructed * BENZONATATE 100 MG CAPSULE Take 1-2 capsules tid prn PREDNISONE 20 MG TABLET Take 2 tablets by mouth once * GUAIFENESIN ER 600 MG TABLET,* Take 2 tablets by mouth twice* FLUTICASONE PROPIONATE 50 MCG* Use 2 Sprays in each nostril * CETIRIZINE 10 MG TABLET Take 1 tablet by mouth once d* Problem List As Of Date: 08/22/2018 (None) Other instructions from your clinician: ASSESSMENT/PLAN: 1. Wheezing - ICD9: 786.07, ICD10: R06.2 (primary diagnosis) - Discussed use of Prednisone 5 day course and albuterol inhaler as needed for cough, wheeze, shortness of breath * Prednisone 40 mg (2 tablets) per day for 5 days, take in morning or early in day * Do not NSAIDs during this 5 day course (ibuprofen, naproxen, Motrin, Aleve, Advil) Tylenol only during prednisone use * Follow up with primary care provider if no improvement with treatmen * Seek medical care immediately, call 911, go to ER if you have chest pain, difficulty breathing, shortness of breath, inability to swallow. - ALBUTEROL SULFATE 2.5 MG/3 ML (0.083 %) SOLUTION FOR NEBULIZATION - XR CHEST 2V FRONTAL/LAT 2. Cough - ICD9: 786.2, ICD10: R05 Rest, increase water intake Motrin or Tylenol as needed for fever or pain. Salt water gargles, chloraseptic spray or lozenges as needed for sore throat. Warm beverages, honey. Nasal saline spray as needed Cool mist humidifier at night Tylenol (generic acetaminophen) 500 mg-2 tabs every 8 hrs. as needed for fever and aches Ibuprofen 600 mg (3-200mg tablets) every 6 hours -Mucinex (generic is fine) Guaifenesin 1200 mg twice daily to help with cough and to thin out mucus - XR CHEST 2V FRONTAL/LAT - return tomorrow between 8 am - 630 pm for chest xr will call with results, and add antibiotic if needed. 3. Nasal congestion - ICD9: 478.19, ICD10: R09.81 Zyrtec 10 mg By mouth daily at bedtime Flonase or Nasonex 1 spray each nostril two times a day. Visit Notes: >> Trinidad Cardenas Aug 22, 2018 7:46 PM Status: Signed 2.5 solution aerosol treatment given per doctor's orders. Prior to treatment O2 Sat is 97%. Treatment completed. O2 sat is 98%. Tolerated well. Trinidad Krishnamurthy Ma Prescriptions ordered this encounter Disp Refills Start End ALBUTEROL SULFATE 2.5 MG/3 ML (0.083* 08/22/2018 08/22/2018 Route: INHALATION ALBUTEROL SULFATE HFA 90 MCG/ACTUATI* 1 In* 0 08/22/2018 Cmt: Dispense ProAir HFA: Brand or Generic Ok Route: INHALATION Sig: Inhale 2 Puffs as instructed every 4 hours as needed. BENZONATATE 100 MG CAPSULE 30 c* 0 08/22/2018 Sig: Take 1-2 capsules tid prn PREDNISONE 20 MG TABLET 10 t* 0 08/22/2018 08/27/2018 Route: ORAL Sig: Take 2 tablets by mouth once daily for 5 days. GUAIFENESIN ER 600 MG TABLET, EXTEND* 24 t* 0 08/22/2018 Route: ORAL Sig: Take 2 tablets by mouth twice daily. FLUTICASONE PROPIONATE 50 MCG/ACTUAT* 1 Chente* 0 08/22/2018 Route: EACH NOSTRIL Sig: Use 2 Sprays in each nostril once daily. Rinse mouth after use. CETIRIZINE 10 MG TABLET 30 t* 0 08/22/2018 Route: ORAL Sig: Take 1 tablet by mouth once daily. Encounter Status:Closed by HEDY DELGADO CNP on 08/22/18 [facility] PROGRESSon 08-22-2018 Protein mass conc HNO ID: [id number] Author: Hedy Delgado Service: ? Author Type: Nurse Practitioner Type: Progress Notes Filed: 08/22/2018 7:56 PM Note Text: Subjective The history is provided by the patient. No speech language pathology assistant was used. RITU Ramirez is a 38 year old female who presents today for CC of cough and chest congestion. This started about 5-6 daysag. She is also having nasal congestion and wheezing. She was seen on 08/03/18 and diagnosed with sinusitis took 10 days of doxycycline, which she states slightly improved for about 2-3 days, and then came back and now worsened symptoms. 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 BP 136/84 Pulse 90 Temp 37.2 ?C (99 ?F) (Tympanic) Resp 18 Wt 119.7 kg (264 lb) SpO2 97% Social History Socioeconomic History Marital status: Spouse name: Not on file Number of children: Not on file Years of education: Not on file Highest education level: Not on file Social Needs Financial resource strain: Not on file Food insecurity - worry: Not on file Food insecurity - inability: Not on file Transportation needs - medical: Not on file Transportation needs - non-medical: Not on file Occupational History Not on file Tobacco Use Smoking status: Current Every Day Smoker Smokeless tobacco: Never Used Substance and Sexual Activity Alcohol use: Not on file Drug use: Not on file Sexual activity: Not on file Other Topics Concerns: Not on file Social History Narrative Not on file PAST MEDICAL HISTORY Diagnosis Date - NEGATIVE MEDICAL HISTORY I have confirmed and edited as necessary, the [facility] Review of Systems Constitutional: Negative for chills and fever. HENT: Positive for congestion (chest). Negative for ear pain, sinus pain and sore throat. Respiratory: Positive for cough. Negative for sputum production, shortness of breath and wheezing. Cardiovascular: Negative for chest pain. Musculoskeletal: Negative for myalgias. Neurological: Negative for headaches. Objective Physical Exam Constitutional: She is well-developed, well-nourished, and in no distress. HENT: Head: Normocephalic and atraumatic. Right Ear: External ear and ear canal normal. Tympanic membrane is bulging. A middle ear effusion (serous) is present. Left Ear: Ear canal normal. Tympanic membrane is bulging. A middle ear effusion (serous) is present. Nose: Mucosal edema and rhinorrhea present. Right sinus exhibits no maxillary sinus tenderness and no frontal sinus tenderness. Left sinus exhibits no maxillary sinus tenderness and no frontal sinus tenderness. Mouth/Throat: Uvula is midline, oropharynx is clear and moist and mucous membranes are normal. No oropharyngeal exudate, posterior oropharyngeal edema, posterior oropharyngeal erythema or tonsillar abscesses. Pulmonary/Chest: Effort normal. She has no decreased breath sounds. She has wheezes. She has no rhonchi. She has no rales. Albuterol nebulizer treatment done, decrease in wheezing, and increase in PO2 - 98% Lymphadenopathy: Head (right side): No submental, no submandibular and no tonsillar adenopathy present. Head (left side): No submental, no submandibular and no tonsillar adenopathy present. She has no cervical adenopathy. Neurological: She is alert. Skin: Skin is warm and dry. Psychiatric: Affect normal. Nursing note and vitals reviewed. ASSESSMENT/PLAN: 1. Wheezing - ICD9: 786.07, ICD10: R06.2 (primary diagnosis) - Discussed use of Prednisone 5 day course and albuterol inhaler as needed for cough, wheeze, shortness of breath * Prednisone 40 mg (2 tablets) per day for 5 days, take in morning or early in day * Do not NSAIDs during this 5 day course (ibuprofen, naproxen, Motrin, Aleve, Advil) Tylenol only during prednisone use * Follow up with primary care provider if no improvement with treatmen * Seek medical care immediately, call 911, go to ER if you have chest pain, difficulty breathing, shortness of breath, inability to swallow. - ALBUTEROL SULFATE 2.5 MG/3 ML (0.083 %) SOLUTION FOR NEBULIZATION - XR CHEST 2V FRONTAL/LAT 2. Cough - ICD9: 786.2, ICD10: R05 Rest, increase water intake Motrin or Tylenol as needed for fever or pain. Salt water gargles, chloraseptic spray or lozenges as needed for sore throat. Warm beverages, honey. Nasal saline spray as needed Cool mist humidifier at night Tylenol (generic acetaminophen) 500 mg-2 tabs every 8 hrs. as needed for fever and aches Ibuprofen 600 mg (3-200mg tablets) every 6 hours -Mucinex (generic is fine) Guaifenesin 1200 mg twice daily to help with cough and to thin out mucus - XR CHEST 2V FRONTAL/LAT - return tomorrow between 8 am - 630 pm for chest xr will call with results, and add antibiotic if needed. 3. Nasal congestion - ICD9: 478.19, ICD10: R09.81 Zyrtec 10 mg By mouth daily at bedtime Flonase or Nasonex 1 spray each nostril two times a day. Diagnosis and treatment plan were discussed and questions were answered to the patient's satisfaction. Pt acknowledged understanding of concepts and follow up plan. Specific signs and symptoms that would indicate the need for higher level of care were discussed in detail warranting prompt ER evaluation. 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 ASSISTANT [employer] [facility] CNOVon 08-03-2018 CNOV Office Visit ([facility] ) -------- ROSEMARIE RAMIREZ ([id number]) 1980 F Date Time Provider Department 08/03/18 3:15 PM HEDY DELGADO (PROSPER) [facility] During your visit today, we recorded the following information about you: Temperature Pulse Respiration Blood pressure 98.2 degrees 80/minute 17/minute 138/90 Weight 123.8 kg Hedy Delgado APRN.CNP 08/03/2018 3:43 PM Signed Subjective The history is provided by the patient. No speech language pathology assistant was used. HPI Rosemarie Ramirez is a 38 year old female who presents today for CC of congestion for the past month, and sinus pressure, it just wont go away. She is also having bilateral ear pressure. She has tried coricidin, ibuprofen. She has a h/o sinusitis in the past BP 138/90 Pulse 80 Temp 36.8 ?C (98.2 ?F) (Tympanic) Resp 17 Wt 123.8 kg (273 lb) SpO2 95% Social History Socioeconomic History Marital status: Spouse name: Not on file Number of children: Not on file Years of education: Not on file Highest education level: Not on file Social Needs Financial resource strain: Not on file Food insecurity - worry: Not on file Food insecurity - inability: Not on file Transportation needs - medical: Not on file Transportation needs - non-medical: Not on file Occupational History Not on file Tobacco Use Smoking status: Current Every Day Smoker Smokeless tobacco: Never Used Substance and Sexual Activity Alcohol use: Not on file Drug use: Not on file Sexual activity: Not on file Other Topics Concerns: Not on file Social History Narrative Not on file PAST MEDICAL HISTORY Diagnosis Date - NEGATIVE MEDICAL HISTORY I have confirmed and edited as necessary, the [facility] Review of Systems Constitutional: Negative for chills and fever. HENT: Positive for congestion, ear pain (pressure ) and sinus pain. Negative for sore throat. Respiratory: Positive for cough. Negative for sputum production, shortness of breath and wheezing. Cardiovascular: Negative for chest pain. Musculoskeletal: Negative for myalgias. Neurological: Positive for headaches (sinus). All other systems reviewed and are negative. Objective Physical Exam Constitutional: She is well-developed, well-nourished, and in no distress. HENT: Head: Normocephalic and atraumatic. Right Ear: External ear and ear canal normal. Tympanic membrane is bulging. Tympanic membrane is not erythematous and not retracted. A middle ear effusion (serous) is present. Left Ear: Ear canal normal. Tympanic membrane is bulging. Tympanic membrane is not erythematous and not retracted. A middle ear effusion (serous) is present. Nose: Mucosal edema and rhinorrhea present. Right sinus exhibits maxillary sinus tenderness and frontal sinus tenderness. Left sinus exhibits maxillary sinus tenderness and frontal sinus tenderness. Mouth/Throat: Uvula is midline, oropharynx is clear and moist and mucous membranes are normal. No oropharyngeal exudate, posterior oropharyngeal edema, posterior oropharyngeal erythema or tonsillar abscesses. Thick Clear Post Nasal Drainage Pulmonary/Chest: Breath sounds normal. She has no decreased breath sounds. She has no wheezes. She has no rhonchi. She has no rales. Lymphadenopathy: Head (right side): No submental, no submandibular and no tonsillar adenopathy present. Head (left side): No submental, no submandibular and no tonsillar adenopathy present. She has no cervical adenopathy. Neurological: She is alert. Skin: Skin is warm and dry. Psychiatric: Affect normal. Nursing note and vitals reviewed. ASSESSMENT/PLAN: 1. Acute non-recurrent pansinusitis - ICD9: 461.8, ICD10: J01.40 - Will begin treatment with Doxycline - Supportive care with plenty of fluids, rest. Tylenol (generic acetaminophen) 500 mg-2 tabs every 8 hrs. as needed for fever and aches Ibuprofen 600 mg (3-200mg tablets) every 6 hours -Increase fluid intake. Try to drink at least 8 glasses of non caffeinated fluids daily. --Rest as much as possible. -Do the nasal saline irrigation at least 2 x day to relieve nasal mucous and congestion: brands include Laureano Med, Simply saline, [place] nasal spray, or even the generic store brand one is ok. Take the entire course of antibiotics as prescribed. DO NOT stop taking it early, even if you are feeling better. -Practice good hygiene, wash hands frequently. -Monitor for signs of worsening infection: increased temperature, pain in face, ear pain or headaches or increase in nasal congestion/mucous that is not improving. -Educated patient on side effects of medication. Flonase or Nasonex 1 spray each nostril two times a day. Stop Afrin Diagnosis and treatment plan were discussed and questions were answered to the patient's satisfaction. Pt acknowledged understanding of concepts and follow up plan. Specific signs and symptoms that would indicate the need for higher level of care were discussed in detail warranting prompt ER evaluation. KYLE Fuentes APRN.CNP 08/03/2018 3:33 PM Signed ASSESSMENT/PLAN: 1. Acute non-recurrent pansinusitis - ICD9: 461.8, ICD10: J01.40 - Will begin treatment with Doxycline - Supportive care with plenty of fluids, rest. Tylenol (generic acetaminophen) 500 mg-2 tabs every 8 hrs. as needed for fever and aches Ibuprofen 600 mg (3-200mg tablets) every 6 hours -Increase fluid intake. Try to drink at least 8 glasses of non caffeinated fluids daily. --Rest as much as possible. -Do the nasal saline irrigation at least 2 x day to relieve nasal mucous and congestion: brands include Laureano Med, Simply saline, [place] nasal spray, or even the generic store brand one is ok. Take the entire course of antibiotics as prescribed. DO NOT stop taking it early, even if you are feeling better. -Practice good hygiene, wash hands frequently. -Monitor for signs of worsening infection: increased temperature, pain in face, ear pain or headaches or increase in nasal congestion/mucous that is not improving. -Educated patient on side effects of medication. Flonase or Nasonex 1 spray each nostril two times a day. Stop Afrin Referring Provider: SELF [200] Allergies As of Date: 08/03/2018 Noted Allergy Reaction PENICILLINS 02/25/2015 16 - Unknown Date Reviewed: 08/03/2018 Reviewed by: Hedy Delgado - Fully Assessed Reason for Visit: Cough [28] Cmt: and chest congestion x 1 month Sinus Problem [99] Cmt: sinus pressure/drainage,(both) ears x 1 month Primary Visit Diagnosis:Acute non-recurrent pansinusitis [J01.40] Order(s):doxycycline monohydrate (MONODOX) 100 mg capsuleTake 1 capsule by mouth twice daily for 10 days.Disp: 20 capsuleRfl: 0 Prescriptions as of 08/03/2018 Sig: DOXYCYCLINE MONOHYDRATE 100 M* Take 1 capsule by mouth twice* Problem List As Of Date: 08/03/2018 (None) Other instructions from your clinician: ASSESSMENT/PLAN: 1. Acute non-recurrent pansinusitis - ICD9: 461.8, ICD10: J01.40 - Will begin treatment with Doxycline - Supportive care with plenty of fluids, rest. Tylenol (generic acetaminophen) 500 mg-2 tabs every 8 hrs. as needed for fever and aches Ibuprofen 600 mg (3-200mg tablets) every 6 hours -Increase fluid intake. Try to drink at least 8 glasses of non caffeinated fluids daily. --Rest as much as possible. -Do the nasal saline irrigation at least 2 x day to relieve nasal mucous and congestion: brands include Laureano Med, Simply saline, [place] nasal spray, or even the generic store brand one is ok. Take the entire course of antibiotics as prescribed. DO NOT stop taking it early, even if you are feeling better. -Practice good hygiene, wash hands frequently. -Monitor for signs of worsening infection: increased temperature, pain in face, ear pain or headaches or increase in nasal congestion/mucous that is not improving. -Educated patient on side effects of medication. Flonase or Nasonex 1 spray each nostril two times a day. Stop Afrin Prescriptions ordered this encounter Disp Refills Start End DOXYCYCLINE MONOHYDRATE 100 MG CAPSU* 20 c* 0 08/03/2018 08/13/2018 Route: ORAL Sig: Take 1 capsule by mouth twice daily for 10 days. Encounter Status:Closed by HEDY DELGADO CNP on 08/03/18 [facility] PROGRESSon 08-03-2018 Protein mass conc HNO ID: [id number] Author: Hedy Delgado Service: ? Author Type: Nurse Practitioner Type: Progress Notes Filed: 08/03/2018 3:43 PM Note Text: Subjective The history is provided by the patient. No speech language pathology assistant was used. HPI Rosemarie Ramirez is a 38 year old female who presents today for CC of congestion for the past month, and sinus pressure, it just wont go away. She is also having bilateral ear pressure. She has tried coricidin, ibuprofen. She has a h/o sinusitis in the past BP 138/90 Pulse 80 Temp 36.8 ?C (98.2 ?F) (Tympanic) Resp 17 Wt 123.8 kg (273 lb) SpO2 95% Social History Socioeconomic History Marital status: Spouse name: Not on file Number of children: Not on file Years of education: Not on file Highest education level: Not on file Social Needs Financial resource strain: Not on file Food insecurity - worry: Not on file Food insecurity - inability: Not on file Transportation needs - medical: Not on file Transportation needs - non-medical: Not on file Occupational History Not on file Tobacco Use Smoking status: Current Every Day Smoker Smokeless tobacco: Never Used Substance and Sexual Activity Alcohol use: Not on file Drug use: Not on file Sexual activity: Not on file Other Topics Concerns: Not on file Social History Narrative Not on file PAST MEDICAL HISTORY Diagnosis Date - NEGATIVE MEDICAL HISTORY I have confirmed and edited as necessary, the [facility] Review of Systems Constitutional: Negative for chills and fever. HENT: Positive for congestion, ear pain (pressure ) and sinus pain. Negative for sore throat. Respiratory: Positive for cough. Negative for sputum production, shortness of breath and wheezing. Cardiovascular: Negative for chest pain. Musculoskeletal: Negative for myalgias. Neurological: Positive for headaches (sinus). All other systems reviewed and are negative. Objective Physical Exam Constitutional: She is well-developed, well-nourished, and in no distress. HENT: Head: Normocephalic and atraumatic. Right Ear: External ear and ear canal normal. Tympanic membrane is bulging. Tympanic membrane is not erythematous and not retracted. A middle ear effusion (serous) is present. Left Ear: Ear canal normal. Tympanic membrane is bulging. Tympanic membrane is not erythematous and not retracted. A middle ear effusion (serous) is present. Nose: Mucosal edema and rhinorrhea present. Right sinus exhibits maxillary sinus tenderness and frontal sinus tenderness. Left sinus exhibits maxillary sinus tenderness and frontal sinus tenderness. Mouth/Throat: Uvula is midline, oropharynx is clear and moist and mucous membranes are normal. No oropharyngeal exudate, posterior oropharyngeal edema, posterior oropharyngeal erythema or tonsillar abscesses. Thick Clear Post Nasal Drainage Pulmonary/Chest: Breath sounds normal. She has no decreased breath sounds. She has no wheezes. She has no rhonchi. She has no rales. Lymphadenopathy: Head (right side): No submental, no submandibular and no tonsillar adenopathy present. Head (left side): No submental, no submandibular and no tonsillar adenopathy present. She has no cervical adenopathy. Neurological: She is alert. Skin: Skin is warm and dry. Psychiatric: Affect normal. Nursing note and vitals reviewed. ASSESSMENT/PLAN: 1. Acute non-recurrent pansinusitis - ICD9: 461.8, ICD10: J01.40 - Will begin treatment with Doxycline - Supportive care with plenty of fluids, rest. Tylenol (generic acetaminophen) 500 mg-2 tabs every 8 hrs. as needed for fever and aches Ibuprofen 600 mg (3-200mg tablets) every 6 hours -Increase fluid intake. Try to drink at least 8 glasses of non caffeinated fluids daily. --Rest as much as possible. -Do the nasal saline irrigation at least 2 x day to relieve nasal mucous and congestion: brands include Laureano Med, Simply saline, [place] nasal spray, or even the generic store brand one is ok. Take the entire course of antibiotics as prescribed. DO NOT stop taking it early, even if you are feeling better. -Practice good hygiene, wash hands frequently. -Monitor for signs of worsening infection: increased temperature, pain in face, ear pain or headaches or increase in nasal congestion/mucous that is not improving. -Educated patient on side effects of medication. Flonase or Nasonex 1 spray each nostril two times a day. Stop Afrin Diagnosis and treatment plan were discussed and questions were answered to the patient's satisfaction. Pt acknowledged understanding of concepts and follow up plan. Specific signs and symptoms that would indicate the need for higher level of care were discussed in detail warranting prompt ER evaluation. 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 ASSISTANT [employer] [facility] CNOVon 07-12-2018 CNOV Office Visit ([facility] ) -------- ROSEMARIE RAMIREZ ([id number]) 1980 F Date Time Provider Department 07/12/18 7:00 AM NICK DOYLE [facility] During your visit today, we recorded the following information about you: Temperature Pulse Respiration Blood pressure 98.8 degrees 88/minute 16/minute 142/84 Weight 123.6 kg Nick Doyle MD 07/12/2018 10:15 AM Signed Patient presents with: right ankle pain: x 1 day-fell yesterday HPI: Right ankle pain: Duration: Rolled her ankle stepping down yesterday Location: Medial ankle, lateral ankle/foot Character: aching and sharp Radiation: Some in the back of the foot Aggravating: Getting up Relieving: ice Pain relievers: Motrin Associated: Swelling, bruising Pertinent negatives: Denies inability to bear weight PAST MEDICAL HISTORY Diagnosis Date - NEGATIVE MEDICAL HISTORY PAST SURGICAL HISTORY Procedure Laterality Date - NONE MEDICATIONS: No prescriptions on file. ALLERGIES: ALLERGIES Allergen Reactions - Penicillins Unknown VITALS: BP 142/84 Pulse 88 Temp 37.1 ?C (98.8 ?F) (Tympanic) Resp 16 Wt 123.6 kg (272 lb 6.4 oz) PE: Pleasant, in no acute distress. ANKLE: right . Mild Swelling present medial and lateral ankle. Mild ecchymosis. Range of motion: inversion - painful, eversion - most painful, anterior drawer- non-painful, posterior drawer- non-painful. painful to bear weight. Palpation: Medial ankle painful, lateral ankle painful, Dorsal proximal midfoot - non-painful, proximal 5th metatarsal painful, posterior calcaneus non-painful ASSESSMENT/PLAN: 1. Acute right ankle pain - ICD9: 719.47, 338.19, ICD10: M25.571 - XR ANKLE GENERAL 3V AP/LAT/OBL RT - negative. Questionable lucency in posterior talus. Radiology interpretation is pending. The patient will be notified if there is a significant finding in the report not discussed at the time of the visit. Rest, ice, elevation, compression, analgesia. Nick Doyle MD Referring Provider: SELF [200] Allergies As of Date: 07/12/2018 Noted Allergy Reaction PENICILLINS 02/25/2015 16 - Unknown Date Reviewed: 07/12/2018 Reviewed by: Melani Lopez LPN - Fully Assessed Reason for Visit: right ankle pain [Other] Cmt: x 1 day-fell yesterday Primary Visit Diagnosis:Acute right ankle pain [M25.571] Order(s):XR ANKLE GENERAL 3V AP/LAT/OBL RT [[id number]] Order #: [id number] FUTURE Problem List As Of Date: 07/12/2018 (None) Medications Discontinued During This Encounter benzonatate (TESSALON PERLE) 100 mg * 30 c* 0 04/06/2016 07/12/2018 Route: ORAL Sig: Take 2 capsules by mouth three times daily as needed for Cough. Patient not taking: Reported on 12/19/2017 Disc: Course of therapy completed Encounter Status:Closed by NICK DOYLE MD on 07/12/18 [facility] PROGRESSon 07-12-2018 Protein mass conc HNO ID: [id number] Author: Deneen Barakat Service: (none) Author Type: (none) Type: Progress Notes Filed: 07/12/2018 8:17 AM Note Text: Radiology Service Progress Note PATIENT NAME: Rosemarie Ramirez DATE OF SERVICE: July 12, 2018 TIME: 8:16 AM PATIENT IDENTITY VERIFICATION COMPLETED USING TWO (2) METHODS: Patient confirmed name verbally and Date of . PATIENT GENDER DATA: Female. status: : No status: NO. PATIENT RELEVANT IMPLANT DATA REVIEWED: Not Applicable RADIOLOGY DEPARTMENT: General X-ray: Exam(s) Completed: Lower Extremity X-Ray(s): Ankle, Right and Wt. Bearing: PERIPHERAL IV DATA: Not applicable SIGNED BY: Deneen Barakat July 12, 2018 8:16 AM [facility] Protein mass conc HNO ID: [id number] Author: Nick Doyle Service: (none) Author Type: Physician Type: Progress Notes Filed: 07/12/2018 10:15 AM Note Text: Patient presents with: right ankle pain: x 1 day-fell yesterday HPI: Right ankle pain: Duration: Rolled her ankle stepping down yesterday Location: Medial ankle, lateral ankle/foot Character: aching and sharp Radiation: Some in the back of the foot Aggravating: Getting up Relieving: ice Pain relievers: Motrin Associated: Swelling, bruising Pertinent negatives: Denies inability to bear weight PAST MEDICAL HISTORY Diagnosis Date - NEGATIVE MEDICAL HISTORY PAST SURGICAL HISTORY Procedure Laterality Date - NONE MEDICATIONS: No prescriptions on file. ALLERGIES: ALLERGIES Allergen Reactions - Penicillins Unknown VITALS: BP 142/84 Pulse 88 Temp 37.1 ?C (98.8 ?F) (Tympanic) Resp 16 Wt 123.6 kg (272 lb 6.4 oz) PE: Pleasant, in no acute distress. ANKLE: right . Mild Swelling present medial and lateral ankle. Mild ecchymosis. Range of motion: inversion - painful, eversion - most painful, anterior drawer- non-painful, posterior drawer- non-painful. painful to bear weight. Palpation: Medial ankle painful, lateral ankle painful, Dorsal proximal midfoot - non-painful, proximal 5th metatarsal painful, posterior calcaneus non-painful ASSESSMENT/PLAN: 1. Acute right ankle pain - ICD9: 719.47, 338.19, ICD10: M25.571 - XR ANKLE GENERAL 3V AP/LAT/OBL RT - negative. Questionable lucency in posterior talus. Radiology interpretation is pending. The patient will be notified if there is a significant finding in the report not discussed at the time of the visit. Rest, ice, elevation, compression, analgesia. Nick Doyle MD [facility] XR ANKLE 3V AP/LAT/OBL RTon 07-12-2018 XR ANKLE 3V AP/LAT/OBL RT * * *Final Report* * * DATE OF EXAM: Jul 12 2018 8:16AM WOX [id number] - XR ANKLE 3V AP/LAT/OBL RT / PROCEDURE REASON: Acute right ankle pain * * * * Physician Interpretation * * * * HISTORY: 38-YEAR-OLD FEMALE WITH Acute right ankle pain . twisted right ankle. Pain medial /posterior/lateral of joint TECHNIQUE: XR ANKLE 3V AP/LAT/OBL RT Laterality: RIGHT Number of different views (projections): 3 COMPARISON: None RESULT: Soft tissue swelling about the medial malleolus. Enthesophyte about the medial malleolus. No acute fracture. Small calcaneal enthesophyte insertion of the plantar fascia. IMPRESSION: NO ACUTE BONY ABNORMALITY. SOFT TISSUE SWELLING ABOUT THE MEDIAL MALLEOLUS. 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 Transcribe Date/Time: Jul 12 2018 8:15P Dictated by : CLEMENT HENDRICKS MD This examination was interpreted and the report reviewed and electronically signed by: CLEMENT HENDRICKS MD on Jul 12 2018 8:16PM EST [id number] [facility] CNOVon 12-19-2017 CNOV Office Visit ([facility] ) -------- ROSEMARIE RAMIREZ ([id number]) 1980 F Date Time Provider Department 12/19/17 6:15 AM DIMITRIS LILLY ([place]) [facility] During your visit today, we recorded the following information about you: Temperature Pulse Respiration Blood pressure 98.1 degrees 80/minute 16/minute 132/88 Weight 128.8 kg Dimitris Lilly PA-C 12/19/2017 6:57 AM Signed Subjective HPI Pt presents with a boil on her abdomen for 2-3 days. She denies history of abscess or MRSA. Her son does get abscesses and was seen at [facility] recently for this. She is 9 months as well. No fever or chills. No drainage from area, Review of Systems Skin: Boil right lower abdomen All other systems reviewed and are negative. No past medical history on file. Current Outpatient Prescriptions: cephALEXin (KEFLEX) 500 mg capsule Take 1 capsule by mouth three times daily for 10 days. Disp: 30 capsule Rfl: 0 mupirocin (BACTROBAN) 2 % cream Apply 1 application to affected area three times daily for 10 days. Location: abdomen Disp: 15 g Rfl: 0 benzonatate (TESSALON PERLE) 100 mg capsule Take 2 capsules by mouth three times daily as needed for Cough. (Patient not taking: Reported on 12/19/2017 ) Disp: 30 capsule Rfl: 0 No current facility-administered medications for this visit. No past surgical history on file. No family history on file. Social History Substance Use Topics - Smoking status: Current Every Day Smoker - Smokeless tobacco: Never Used - Alcohol use Not on file BP 132/88 Pulse 80 Temp 36.7 ?C (98.1 ?F) (Tympanic) Resp 16 Wt 128.8 kg (284 lb) Objective Physical Exam Constitutional: She is oriented to person, place, and time and well-developed, well-nourished, and in no distress. HENT: Head: Normocephalic and atraumatic. Cardiovascular: Normal rate, regular rhythm and normal heart sounds. Pulmonary/Chest: Effort normal and breath sounds normal. Abdominal: Pt has 3 cm area of redness with central induration on the right lower abdomen. No streaking. No fluctuance or sign of drainable abscess. Neurological: She is alert and oriented to person, place, and time. Skin: Skin is warm and dry. Psychiatric: Affect and judgment normal. Nursing note and vitals reviewed. ASSESSMENT/PLAN: 1. Skin infection - ICD9: 686.9, ICD10: L08.9 - Begin treatment with Cephalaxin (Keflex) and topical mupirocin. Pt denies anaphylactic reaction to PCN, she had an allergy as a baby. - No lymphangetic streaking, this was defined for patient to watch for and to seek medical care immediately if appears - Discussed with patient concerning symptoms to go to the emergency department or follow up here. Pt agreeable with this plan. Dimitris Lilly PA-C Referring Provider: SELF [200] Allergies As of Date: 12/19/2017 Noted Allergy Reaction PENICILLINS 02/25/2015 16 - Unknown Date Reviewed: 12/19/2017 Reviewed by: Trinidad Krishnamurthy Ma - Fully Assessed Reason for Visit: Derm Problem [33] Cmt: red, swollen and pressure spot on abdominal area x 2 days-9 months Reason For Visit History Recorded Primary Visit Diagnosis:Skin infection [L08.9] Order(s):cephALEXin (KEFLEX) 500 mg capsuleTake 1 capsule by mouth three times daily for 10 days.Disp: 30 capsuleRfl: 0 mupirocin (BACTROBAN) 2 % creamApply 1 application to affected area three times daily for 10 days. Location: abdomenDisp: 15 gRfl: 0 Prescriptions as of 12/19/2017 Sig: CEPHALEXIN 500 MG CAPSULE Take 1 capsule by mouth three* MUPIROCIN 2 % TOPICAL CREAM Apply 1 application to affect* BENZONATATE 100 MG CAPSULE Take 2 capsules by mouth thre* Patient not taking: Reported on 12/19/2017 Problem List As Of Date: 12/19/2017 (None) Prescriptions ordered this encounter Disp Refills Start End CEPHALEXIN 500 MG CAPSULE 30 c* 0 12/19/2017 12/29/2017 Route: ORAL Sig: Take 1 capsule by mouth three times daily for 10 days. MUPIROCIN 2 % TOPICAL CREAM 15 g 0 12/19/2017 12/29/2017 Route: TOPICAL Sig: Apply 1 application to affected area three times daily for 10 days. Location: abdomen Encounter Status:Closed by DIMITRIS LILLY PA-C on 12/19/17 [facility] PROGRESSon 12-19-2017 Protein mass conc HNO ID: [id number] Author: Dimitris Lilly (Pa) Service: (none) Author Type: Physician Retail Management Trainee Type: Progress Notes Filed: 12/19/2017 6:57 AM Note Text: Subjective HPI Pt presents with a boil on her abdomen for 2-3 days. She denies history of abscess or MRSA. Her son does get abscesses and was seen at [facility] recently for this. She is 9 months as well. No fever or chills. No drainage from area, Review of Systems Skin: Boil right lower abdomen All other systems reviewed and are negative. No past medical history on file. Current Outpatient Prescriptions: cephALEXin (KEFLEX) 500 mg capsule Take 1 capsule by mouth three times daily for 10 days. Disp: 30 capsule Rfl: 0 mupirocin (BACTROBAN) 2 % cream Apply 1 application to affected area three times daily for 10 days. Location: abdomen Disp: 15 g Rfl: 0 benzonatate (TESSALON PERLE) 100 mg capsule Take 2 capsules by mouth three times daily as needed for Cough. (Patient not taking: Reported on 12/19/2017 ) Disp: 30 capsule Rfl: 0 No current facility-administered medications for this visit. No past surgical history on file. No family history on file. Social History Substance Use Topics - Smoking status: Current Every Day Smoker - Smokeless tobacco: Never Used - Alcohol use Not on file BP 132/88 Pulse 80 Temp 36.7 ?C (98.1 ?F) (Tympanic) Resp 16 Wt 128.8 kg (284 lb) Objective Physical Exam Constitutional: She is oriented to person, place, and time and well-developed, well-nourished, and in no distress. HENT: Head: Normocephalic and atraumatic. Cardiovascular: Normal rate, regular rhythm and normal heart sounds. Pulmonary/Chest: Effort normal and breath sounds normal. Abdominal: Pt has 3 cm area of redness with central induration on the right lower abdomen. No streaking. No fluctuance or sign of drainable abscess. Neurological: She is alert and oriented to person, place, and time. Skin: Skin is warm and dry. Psychiatric: Affect and judgment normal. Nursing note and vitals reviewed. ASSESSMENT/PLAN: 1. Skin infection - ICD9: 686.9, ICD10: L08.9 - Begin treatment with Cephalaxin (Keflex) and topical mupirocin. Pt denies anaphylactic reaction to PCN, she had an allergy as a baby. - No lymphangetic streaking, this was defined for patient to watch for and to seek medical care immediately if appears - Discussed with patient concerning symptoms to go to the emergency department or follow up here. Pt agreeable with this plan. Dimitris Lilly PA-C [facility] Encounters Encounter Date Encounter Type Care Provider Facility Start: 09-11-2018 End: 09-13-2018 Patient encounter procedure NICK DOYLE [facility] Start: 08-23-2018 End: 08-25-2018 Patient encounter procedure HEDY DELGADO [facility] Start: 08-22-2018 End: 08-23-2018 Patient encounter procedure NICK DOYLE [facility] Start: 08-03-2018 End: 08-04-2018 Patient encounter procedure NICK DOYLE [facility] Start: 07-12-2018 End: 07-12-2018 Patient encounter procedure NICK DOYLE [facility] Start: 12-26-2017 End: 12-26-2017 Emergency department patient visit [facility]IC[facility] Facility:[facility] Start: 12-21-2017 End: 12-21-2017 Emergency department patient visit YANIRA GARCIA Facility:[facility] Start: 12-19-2017 End: 12-20-2017 Patient encounter procedure NICK DOYLE [facility] Payers Date Payer Category Payer Unknown [id number] 2016 Private Health Insurance [id number] 1980 Unknown [id number] 1980 Unknown [id number] Summary Purpose Family History No Family History Records FoundNo Family History Records Found Advance Directives No Advanced Directives Records FoundNo Advanced Directives Records Found Additional Source Comments INFORMATION SOURCE (unrecogn ized section and content) DATE CREATED AUTHOR 04/24/2018 [facility] ([place]) DATE CREATED AUTHOR AUTHOR'S ORGANIZ ATION 09/19/2018 [facility] FOR RECORDS PERTAINING TO PATIENTS WHO ARE OR HAVE BEEN ENROLLED IN A CHEMICAL DEPENDENCY/SUBSTANCEABUSE PROGRAM, SOME INFORMATION MAY BE OMITTED. This clinical summary was aggregated from multiple sources. Caution should be exercised in using it in the provision of clinical care. This summary normalizes information from multiple sources, and as a consequence, information in this document may materially change the coding, format and clinical context of patient data. In addition, data may be omitted in some cases. CLINICAL DECISIONS SHOULD BE BASED ON THE PRIMARY CLINICAL RECORDS. [employer] [facility]. provides no warranty or guarantee of the accuracy or completeness of information in this document.
== END | disposition home or self-care (01) ==
LOC: CT 16:44
PROVIDERS: PCP Internal Medicine; Referring Provider Orthopaedic Surgery; Visit Provider Orthopaedic Surgery
DX: M16.12 Unilateral primary osteoarthritis, left hip (principal)
CPT/HCPCS: 73700

== ENCOUNTER 2024-04-03 05:23 | Day surgery (SDC) | payer OTHER, SELFPAY ==
[2024-03-12 12:20] LABS: Absolute Lymphocyte Count 2.05 X10^3/uL (0.83-4.51); Absolute Neutrophil Count 4.3 X10^3/uL (2.0-7.7); Basophil# 0.05 X10^3/uL; Basophil% 0.7 % (0-1); Eosinophils% 4.2 % (0-5); Hematocrit 35.1 % (37-47); Hemoglobin 11.4 g/dL (12.0-15.0); Lymphocyte # 2.05 X10^3/ul (0.83-4.51); Lymphocyte % 28.4 % (19-41); Mean Corp Hgb Conc 32.5 g/dL (32-36); Mean Corpuscular Hgb 29.6 pg (27.0-32.0); Mean Corpuscular Volume 91.2 fL (81-99); Mean Platelet Vol. 9.8 fl (6.2-12.0); Monocyte# 0.45 X10^3/uL; Monocyte% 6.2 % (0-10); NRBC Flagged by Analyzer 0 % (0-5); Neutrophil # 4.33 X10^3/uL (2.7-7.7); Neutrophil % 60.1 % (47-70); Platelet Count 290 K/mm3 (150-450); RBC Distribution Width CV 12.6 % (11.6-14.6); RBC Distribution Width SD 41.4 fl (35.1-43.9); Red Blood Count 3.85 M/mm3 (4.2-5.4); White Blood Count 7.2 K/mm3 (4.4-11.0)
[2024-03-12 12:23] LABS: Prothrombin Time (Protime)PT. 13.4 SECONDS (11.7-14.9)
[2024-03-12 12:24] LABS: Partial Thromboplast Time 26.6 Seconds (24.1-36.2)
[2024-03-12 12:29] LABS: Hemoglobin A1c 5.1 % (3.8-5.6)
[2024-03-12 12:38] LABS: Anion Gap 8 (5-15); BUN 15 mg/dL (7-18); BUN/Creat Ratio 18.7 RATIO (10-20); Calcium,Total 8.8 mg/dL (8.5-10.1); Chloride 104 mmol/L (98-107); EST Glomerular Filtration Rate 83 mL/min (>60); Est Glom Filt Rate - Afr Amer 101 mL/min (>60); Glucose 85 mg/dL (74-106); Potassium 3.6 mmol/L (3.5-5.1); Sodium Level 138 mmol/L (136-145)
[2024-03-12 15:50] LABS: Magnesium 2.1 mg/dL (1.6-2.6)
[2024-03-19 16:10] LABS: Cotinine Screen Blood <1.0 ng/mL (.); Fructosamine 214 umol/L (0-285); Nicotine Blood <1.0 ng/mL (.)
[2024-04-03] VITALS (12 sets, daily range): BP systolic 105–138; BP diastolic 43–92; PULSE 48–83; RESP 16–18; TEMP 36.1–36.7; O2SAT 98–100; BMI 32.5
[2024-04-03 06:00] LABS: Internal QC Validated? YES +Cl - CLEAR BKGD; Pregnancy, Urine Negative Negative
[2024-04-03] MEDS: Lactated Ringers 1,000 ML 999 ML IV (06:13)
[2024-04-03] MEDS: Scopolamine 1mg/72hr Patch 1 PATCH TD (06:15)
[2024-04-03] MEDS: Magnesium 1 GM over 15 mins IV (06:15)
[2024-04-03] MEDS: Gabapentin 600 MG Tablet PO (06:15)
[2024-04-03] MEDS: Acetaminophen 500 MG Tablet 1000 MG PO ×2 (06:15→13:17)
--- NOTE | 2024-04-03 06:54 | PCM.PRE.AN2 ---
ASA Classification* ASA Classification ASA Classification: 2 Assessment & Plan Anesthesia* Anesthesia Assessment Anesthesia Assessment: Discussed sedation and/or anesthesia options, risks, benefits, and alternatives with patient/parents/legal guardian/POA. Questions invited. The patient/parents/legal guardian/POA seems to understand and agrees to proceed with anesthesia plan. Reviewed the physical assessment, medical history, allergy history and patient home medications list prior to surgery/procedure/anesthetic and documented any changes. Performed airway and anesthesia risk assessments. Anesthesia Type Anesthesia Type: Spinal History Source History Obtained from:: Patient and Chart Anesthesia Focused Assessment* Temperature: 98.0 F Pulse Rate: 72 Blood Pressure: 125/85 Respiratory Rate: 16 Pulse Ox: 99 Oxygen Delivery Method: Room Air Airway Assessment Mouth opens: >3 cm Mallampati Score: II Teeth Condition: Missing (Patient has some missing molars. Rest of the teeth are tight.) Neck Range of motion (ROM): Full ROM Focused Labs Anesthesia Preop lab: CBC WBC 7.2 K/mm3 (4.4-11.0) 03/12/24 11:12 RBC 3.85 M/mm3 (4.2-5.4) L 03/12/24 11:12 Hgb 11.4 g/dL (12.0-15.0) L 03/12/24 11:12 Hct 35.1 % (37-47) L 03/12/24 11:12 Plt Count 290 K/mm3 (150-450) 03/12/24 11:12 CHEMISTRY Potassium 3.6 mmol/L (3.5-5.1) 03/12/24 11:12 Sodium 138 mmol/L (136-145) 03/12/24 11:12 Magnesium 2.1 mg/dL (1.6-2.6) 03/12/24 11:12 BUN 15 mg/dL (7-18) 03/12/24 11:12 Creatinine 0.80 mg/dL (0.55-1.02) 03/12/24 11:12 Glucose 85 mg/dL (74-106) 03/12/24 11:12 TSH 1.90 uIU/mL (0.358-3.74) 07/28/23 09:05 COAG PT 13.4 SECONDS (11.7-14.9) 03/12/24 11:12 Urine Test Negative Negative 04/03/24 05:45 Pre-Assessment Diagnosis/Proposed Procedure Planned Operative Procedure(s): (L) Left Total Hip Replacement Robotic Arm Assisted Anesthesia History 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 When Was Last Pacemaker Check QUESTION #4 FULL TEXT: You/Your Family Experience fever (hyperthermia) with Anesthesia Last Oral Intake Last Oral intake: Last Oral Intake NPO since 04:00 04/03/24 06:07 Meds taken in AM with sips of No 04/03/24 06:07 water? 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 design specialist Female Yes 03/12/24 09:19 HX of Motion Sickness No 03/12/24 09:19 HX of N/V After Surgery No 03/12/24 09:19 Non-Smoker Yes 03/12/24 09:19 Duration of Surgery greater Yes 03/12/24 09:19 than 60 minutes Number of Risk Factors 3 03/12/24 09:19 PONV Score Moderate Risk 03/12/24 09:19 Height & Weight Height & Weight: Anesthesia: Height & Weight Height 5 ft 8 in 04/03/24 06:07 Weight: 97 kg 04/03/24 06:07 Body Mass Index (BMI) 32.5 04/03/24 06:07 Respiratory Assessment Respiratory Assessment - piping design specialist: Respiratory Tract Infection Hx - piping design specialist Hx Respiratory Tract Infection No 03/12/24 09:19 STOP Sleep Apnea STOP Sleep Apnea - piping design specialist: STOP Sleep Apnea - piping design specialist Hx Hypertension No 03/12/24 09:19 Hx Sleep Apnea No 03/12/24 09:19 CPAP BIPAP Do you snore loudly (louder No 03/12/24 09:19 than talking or can be heard Do you often feel tired/ No 03/12/24 09:19 fatigued/ sleepy during daytime? Has anyone observed you stop No 03/12/24 09:19 breathing during sleep? STOP Results Negative 03/12/24 09:19 QUESTION #5 FULL TEXT : Do you snore loudly (louder than talking or can be heard through closed doors)? 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 Specify any problems Hx of Preganancy in last 3 N/A 03/12/24 09:19 Months Nurse Filling Out Transfusion NBUCHER 03/12/24 09:19 & Questions: Date: 03/12/24 03/12/24 09:19 Time: 09:21 03/12/24 09:19 Patient unable to answer at this time (ie. confused, unrespo /Reproduction History /Reproductive History - piping design specialist: /Reproductive Hx- piping design specialist Hx Now No 03/12/24 09:19 Gestational Age (in weeks): EDC: Hx Hx Para Hx Section SAB No 03/12/24 09:19 Active Medications Active Medications: Current Medications Generic Name Dose Route Start Last Admin Trade Name Freq PRN Reason Stop Dose Admin Acetaminophen 1,000 mg 04/03/24 07:30 04/03/24 06:15 Acetaminophen 500 Mg Tablet PO 04/03/24 07:31 1,000 mg X1 ONE Administration Dexamethasone Sodium Phosphate 10 mg 04/03/24 07:30 Dexamethasone 10 Mg/Ml Vial IV 04/03/24 07:31 X1 ONE Gabapentin 600 mg 04/03/24 07:30 04/03/24 06:15 Gabapentin 600 Mg Tablet PO 04/03/24 07:31 600 mg X1 ONE Administration Lactated Ringer's 1,000 mls @ 999 mls/hr 04/03/24 07:30 04/03/24 06:13 IV 04/03/24 08:30 999 mls/hr .Q1H1M ALEC Administration Lactated Ringer's 1,000 mls @ 100 mls/hr 04/03/24 07:30 IV 04/03/24 17:29 .Q10H ALEC Magnesium Sulfate 1 gm/ 102 mls @ 408 mls/hr 04/03/24 07:30 04/03/24 06:15 Dextrose IV 04/03/24 07:44 408 mls/hr X1 ONE Administration Tranexamic Acid 2,000 mg/ 120 mls @ 660 mls/hr 04/03/24 07:30 Sodium Chloride IV 04/03/24 07:40 X1 ONE Lactated Ringer's 1,000 mls @ 125 mls/hr 04/03/24 07:30 IV 04/03/24 15:29 .Q8H ALEC Cefazolin Sodium 2 gm/ N/A 20 mls @ 400 mls/hr 04/03/24 07:30 IV 04/03/24 07:32 PREOP ONE Insulin Human Lispro 1 - 6 unit 04/03/24 07:30 Insulin Lispro 100 Unit/Ml Insuln.Pen SC 04/03/24 13:00 Q4H PRN PRN BG>/= 180, SEE PROTOCOL Protocol Scopolamine HBr 1 patch 04/03/24 07:30 04/03/24 06:15 Scopolamine 1mg/72hr Patch TD 04/03/24 07:31 1 patch X1 ONE Administration PFSH Medical History Flu vaccine need Preoperative evaluation to rule out surgical contraindication Wears glasses Arthritis Low iron Former smoker Chronic constipation Hypertension Left hip pain Anxiety and depression Elevated blood pressure reading Tobacco abuse counseling Low back pain with bilateral sciatica Overflow incontinence of urine Headache Bilateral hip pain Generalized anxiety disorder Restless leg syndrome Hives Frequent headaches Gout Asthma Seasonal allergies Difficulty balancing when standing Fatigue Home Medications ?Medication ?Instructions ?Recorded ?Last Taken ?Type cetirizine 10 mg capsule (Zyrtec) 10 mg PO DAILY 06/09/20 04/02/24 History albuterol sulfate 2.5 mg/3 mL See Rx Instructions .Route 06/24/22 Unknown Rx (0.083 %) solution for nebulization .COMPLEX #180 mL albuterol sulfate 90 mcg/actuation See Rx Instructions .Route 07/20/23 03/31/24 Rx aerosol inhaler .COMPLEX #8.5 ea ferrous sulfate 325 mg (65 mg 325 mg PO Q OTHER DAY #90 tabs 10/04/23 04/01/24 Rx iron) tablet tramadol 50 mg tablet 50 mg PO DAILY PRN pain #7 tabs 11/18/23 04/01/24 Rx naproxen 500 mg tablet 500 mg PO BID PRN pain #60 tabs 02/13/24 03/26/24 Rx amlodipine 5 mg tablet 5 mg PO QDAY #30 tabs 03/16/24 04/01/24 Rx ondansetron 4 mg disintegrating 4 mg PO Q8H PRN nausea and 04/02/24 04/03/24 Rx tablet vomiting #60 tabs Allergy/AdvReac Type Severity Reaction Status Date / Time meloxicam Allergy Intermediate Swelling Verified 03/16/24 09:15 cat dander Allergy Mild Other Verified 03/16/24 09:15 house dust mite Allergy unknown Verified 03/16/24 09:15 Penicillins Allergy Rash Verified 04/02/24 15:51 shellfish derived Allergy unknown Verified 03/16/24 09:15 Family History Other Asthma Breast cancer Family history of prostate cancer Heart disease Hypertension Surgical History History of tonsillectomy History of wisdom tooth extraction Social History household members: spouse current occupational status: employed 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
--- NOTE | 2024-04-03 07:26 | HP.PCM_ITS ---
History and Physical Date of Admission: 04/03/24 [facility] [address] [place] [address] OFFICE VISIT Date of Service: 12/19/23 MR#: [id number] Acct: [id number] Name: RUSS RAMIREZ Rep #: [id number] : 1980 Provider: Dr. Edward Contreras DO Age/Sex: 43/F Location: [facility] [place] Status: Signed Intake Vital Signs 11/03/2408:54 Height 5 ft 8 in Weight: 207 lb 5 oz BMI 31.5 Intake Visit Reasons: LEFT HIP Chief Complaint: Left Hip Pain Allergies meloxicam Allergy (Intermediate, Verified 12/19/23 10:18) Swellingcat dander Allergy (Mild, Verified 12/19/23 10:18) Otherhouse dust mite Allergy (Verified 12/19/23 10:18) unknown Penicillins Allergy (Verified 12/19/23 10:18) Othershellfish derived Allergy (Verified 12/19/23 10:18) unknown [facility] Medical History Chronic constipation Hypertension Left hip pain Anxiety and depression Elevated blood pressure reading Tobacco abuse counseling Low back pain with bilateral sciatica Overflow incontinence of urine Headache Bilateral hip pain Generalized anxiety disorder Restless leg syndrome Hives Frequent headaches Gout Asthma Seasonal allergies Difficulty balancing when standing Fatigue Surgical History History of wisdom tooth extraction Family History Other Asthma Breast cancer Family history of prostate cancer Heart disease Hypertension Social History household members: spouse current occupational status: employed 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 Edward Contreras, DO 12/19/23 0756. Part of today?s visit was documented by Juanis GABRIEL, acting as scribe. RUSS RAMIREZ is a 43 year old F here today for office visit 11/04/2023: Patient was having pain for about a month she was playing soccer in the backyard with her side and she stepped in a hole and stumbled and pain. No previous problems with the hip increased pain with standing sitting and walking groin pain radiates into her medial and outer thigh and left buttock she felt a stabbing like pain. She also had low back pain no physical therapy however she did naproxen 500 twice a day and a medrol dose pack and an MRI was ordered at that time 11/25/2023 : Patient is here today for MRI review of the left hip. Patient states that since she was last seen her hip pain has gotten worse. She states that overall her pain and mobility is getting worse. She was prescribed Tramadol 50mg by Dr. Banerjee that she takes at night which does help take the edge off to help her sleep. We discussed she has arthritis in her hip and recommended since she had already tried naproxen and a Medrol Dosepak options were to do-nothing referral for pain management for a hip injection physical therapy or prescription for etodolac. She did wish to try the etodolac we did send this in and made a referral to pain management and physical therapy the concern for hip replacement was her young age she is only 43 and she was not really having prior problems. Patient is here today 12/19/23 for continued let hip pain. She states that she saw pain management and had an injection on 11/30/23 and states that once the numbing from the injection wore off she could feel the hip again. She also saw PT on 12/16/23 and they told her there isn't anything that they are able to do for her. She notes that she went back to pain management last week and he gave her a prescription for tramadol TID but she only takes it before bed. She states that the Etodolac isn't helping with her pain. Ortho Exam General General: Yes no acute distress Neurologic: Yes alert and Yes oriented x3 Psychologic: Yes reasonable and appropriate Left Hip Skin/Wound: Yes CDI, No Ecchymosis, No soft tissue swelling and No Erythema Hip: Absent eccymosis, soft tissue swelling or erythema internal rotation @90 degree flexion: 5 degrees external rotation @90 degree extension: 30 degrees HIP: IR and ER with severe pain 5/5 abbduction pain add Constitutional: Well-developed; well-nourished; in no acute distress Eyes: No jaundice ENT: Nares patent; no obvious deformity Cardiovascular: No cyanosis; clubbing; or edema Lymphatic: No adenopathy in area of examination Skin: No rashes or lesions in the area of examination and intact Neurologic: Alert and oriented x 3 Psychiatric: Mood and affect appropriate Supplemental Info 11/21/2023 MRI left hip: 1. Severe hypertrophic degenerative changes of the left hip joint with prominent subchondral cyst at the anterosuperior aspect of the left acetabular roof. 2. Benign appearance of the ovaries with no adnexal masses. Bladder is incompletely distended. 10/07/2023 x-ray left hip: Mild degenerative changes bilateral hips preserved joint space 05/21/2022 x-ray lumbar spine: Dextroscoliosis diffuse facet sclerosis mild to space narrowing and osteophytes most marked L3-L4 L4-L5, questionable transitional sacralization of fifth lumbar on AP view Coding Level of Care Code Off vis,est,level 3 Diagnoses Primary osteoarthritis of left hip M16.12 Osteoarthritis type: primary Tobacco abuse Z72.0 Assessment and Plan Assessment and Plan (1) Degenerative joint disease of left hip: Status: Acute Qualifiers: Osteoarthritis type: primary Qualified Code(s): M16.12 - Unilateral primary osteoarthritis, left hip (2) Tobacco abuse: Status: Acute Plan Patient is here today for continued left hip pain. Spoke with patient that since she has tried all of the conservative treatments her options now are do nothing or a ASHU. Advised patient that because she is so young that if she wishes to have her hip replaced she would likely have to have a hip revision in her lifetime which is a bigger procedure, which inherently carries more risk and complications. Spoke with patient that she would have to stop smoking 6 weeks before surgery and 6 weeks after. Risks, benefits and alternatives of surgery reviewed including but not limited to bleeding, infection, nerve, foot drop, artery and/or tissue damage, fracture, VTE, leg length discrepancy, dislocation, need for hip precautions, continued pain and expected post-operative course. Follow up 2 weeks postop or sooner if pain, swelling, numbness or associated symptoms, or concerns develop. All questions answered. Patient in agreement of plan. Patient needs to quit smoking 6 weeks before and 6 weeks after surgery including all nicotine products she needs to hold all NSAIDs 7 days prior to surgery Tentative surgery date March 13, 2024 same-day surgery Plan Details Goals & Barriers: Goals Decrease pain Decrease inflammation Improve ROM Improve gait Target Due Date 08/12/22 Barriers Dextroscoliosis Lumbarization 12/19/23 1204 <Electronically signed by Edward Contreras DO> Date Edward Contreras DO Cosigner Signature: Date (if applicable) CC: ~ I have examined the patient and the H&P has been reviewed. There are no clinical changes since date of exam.
--- NOTE | 2024-04-03 07:30 | HIP_PTH ---
PATIENT: RUSS RAMIREZ [place] [facility] [id number] AGE/SX: 44/F ROOM: RE04/03/[address]: Dr. Edward Contreras DO : 1980 BED: DIS: 04/03/2024 SPEC #: [id number] RECD: 04/03/24 11:06 STATUS: MARTHA ARMANDO #: [id number] HALLEY: 04/03/24 07:[address]: Edward Contreras DEPT: SURGICAL PATHOLOGY RECD BY: Yaz Dee ENTERED: 04/03/24 12:25 SP TYPE: TOTAL HIP OTHR DR: Dr. Kermit Banerjee MD Tissues: Hip, NOS Procedures: Decalcification bone/plaque Surgery Specimen Level IV HEADER OPERATION: Left total hip replacement robotic arm assist PRE-OP DIAGNOSIS: Degenerative joint disease of left hip TISSUE SUBMITTED: Bone and soft tissue left hip MICROSCOPIC DIAGNOSIS Left hip bone and soft tissue, total hip replacement/resection: Femoral head with degenerative osteoarthritic changes. Fragments of fibroadipose tissue, fibroconnective tissue and reactive synovial tissue. NATHALIE: 04/06/2024 MICROSCOPIC DESCRIPTION Slides are reviewed. GROSS DESCRIPTION Received is one container labeled with the patient's name and designated bone and soft tissue left hip. The specimen consists of a soni femoral head with portion of femoral neck. The femoral head measures 5.0 x 4.5 x 3.5 cm and portion of the femoral neck measures 1.5 cm in length. The articular surface displays prominent osteophyte formation, eburnation and bone erosion. Also present in the specimen container are multiple irregular fragments of bone reamings and pink-yellow soft tissue measuring in aggregate 9.0 x 8.0 x 2.0 cm. Sidewalk Repairer sections are submitted in three cassettes as follows: 1 - soft tissue, 2&3 - bone after decalcification. 04/03/2024 TC: 5 CPT: 71510, [id number]
[2024-04-03] MEDS: Cefazolin 2 GM in Syringe IV ×2 (07:36→14:17)
[2024-04-03] MEDS: TRANEXAMIC ACID 2,000 MG in 0.9% Normal Saline (100mL Bag) 100 ML 660 MG IV (07:36)
[2024-04-03 08:27] LABS: Bedside Glucose 82 mg/dL (74-106)
[2024-04-03] MEDS: dexAMETHasone 10 MG/ML Vial IV (08:28)
--- NOTE | 2024-04-03 09:56 | RAD_ITS ---
STUDY: X-RAY - PELVIS AND LEFT HIP REASON FOR EXAM: Female, 44 years old. Post op - in PACU TECHNIQUE: 2 views of the pelvis and left hip. COMPARISON: Pelvis and left hip radiographs dated 10/07/2023. FINDINGS: There is a new left hip arthroplasty in place. There is no periprosthetic fracture. There is adjacent soft tissue gas, compatible with recent surgery. There is a non-specific bowel gas pattern. Normal visualized soft tissue structures. Normal bilateral iliac wings, sacroiliac joints and visualized sacrum. Normal bilateral superior and inferior pubic rami. Normal pubic symphysis. Normal bilateral ischial tuberosities. RAD/Hip Min 2 Views (Portable) IMPRESSION: New left hip arthroplasty, with no periprosthetic fracture. Electronically Signed: Ronnie Zarco MD at 10:42 EST ,
--- NOTE | 2024-04-03 09:59 | PCM.OPRPT ---
Operative Report (Standard) Operative Information Surgery/Procedure Performed: Left total hip arthroplasty Surgeon: Edward Contreras Date of Procedure: 04/03/24 Procedure Start Time: 08:03 Procedure Stop Time: 09:57 Pre-Operative Diagnosis: Left hip DJD Post-Operative Diagnosis: Same Select all DRAINS/GRAFTS/IMPLANTS that apply: None Type of Anesthesia: Spinal Estimated Blood Loss: 175 Specimen collected: Yes Description of specimen(s) removed: Femoral head Description of surgery: Preoperative diagnosis: Left hip DJD Postoperative diagnosis: Same Procedure: CT-guided Makoplasty assisted left total hip arthroplasty Implants: [place] Accolade II stem size 3, 127 degree neck angle +4mm head neck length 50 mm Trident II acetabular shell with 35 mm cancellous screw 32mm ceramic head, 10 degree Trident X3 polyethylene insert. Anesthesia: Spinal EBL: 175 cc Complications: None Condition: Stable to PACU Lap Regulator Solo Pena. My physician administration assistant was a vital part of this case. He was important in appropriate retraction during the case, and protection of soft tissues during procedure. His intimate knowledge of the case and my steps aided in safe and expedient completion of the procedure as well as appropriate position of the extremity during the case. He was also vital in assisting with closure under my direct supervision. Indication for procedure: This is a 44-year-old female who has had long-standing arthrosis of the hip who has failed conservative treatment and wished to undergo total hip arthroplasty. We did discuss operative versus nonoperative intervention including risks of bleeding, infection , nerve artery tissue damage, need for further surgery, fracture, leg length discrepancy dislocation blood clot and need for postoperative physical therapy and postoperative expectations. An informed consent was signed. Procedure: Patient was met in the preoperative holding area once again the operative extremity was identified by both patient and physician and was marked. Patient was met by anesthesia . Anesthesia was started. patient was then positioned in the lateral decubitus position on a well-padded pegboard with an axillary roll. All bony prominences were checked and padded. The patient was prepped and draped in the usual sterile fashion. A timeout was called to ensure the proper patient procedure and extremity were being contemplated. Anatomic landmarks were palpated and marked for a standard posterior lateral approach. Prior to this the ASIS was palpated and 3 fingerbreadths proximal to this 3 pins were placed at a 45 degree angle into the iliac crest with good purchase, stab incisions were made with a 15 blade into the skin prior to placement. The Makoplasty array was then secured. A 10 blade scalpel was used to make a posterior incision through the skin and subcutaneous tissue. retractors were used and electrocautery was used to maintain meticulous hemostasis and dissect full-thickness flaps until the gluteal fascia was reached. The gluteal fascia was incised in line with the gluteal fibers. The bursal tissue was then freed from the underside and a Charnley retractor was placed. The femoral trochanteric checkpoint was placed and leg length was assessed using the trochanteric checkpoint and an EKG lead that was placed on the knee prior to prepping the leg .the fat pad was then elevated off of the external rotators with electrocautery and the external rotators were dissected off of the greater trochanter including the piriformis and were tagged with #1 Ethibond for later repair. The joint capsule opened with posterior trapdoor technique. The hip was surgically dislocated. The measurement on the preoperative CT from the top of the lesser trochanter to the femoral neck cut was marked Hohmann was placed around the lesser trochanter. A neck cutting guide was used to barb the neck with a Bovie and an oscillating saw was used complete the femoral neck cut. The femoral head was then removed and sized. We then turned our attention to the acetabulum. A Bovie was used to make a perforation in the anterior joint capsule and a Ramires retractor was placed this was repeated in the 6 o'clock position and a wide marcela was placed there. With a long handled knife the labral and pulvinar tissue were removed. We then registered the acetabulum with the pointing array and confirmed our landmarks. Once the socket was thoroughly prepared and labral tissue and pulvinar was removed we single reamed with the robotic arm. We then used the robotic arm to position the acetabular implant and impacted it into place under robotic guidance. We then proceeded to place a posterior superior screw by drilling first measuring and inserting the screw. We then inserted a trial liner. And turned our attention back to the femur at this point a femoral elevator was used. As well as a pointed wide Hohmann around the lesser trochanter and a Hohmann to help retract the gluteus medius. A box chisel was used to remove excess lateral neck followed by a canal finder and a lateralizing reamer. This was followed by sequential broaches. Attention was made of the version within the canal based on preoperative templating. Once the final broach was seated we then trialed reduced the hip it was determined that a 127 degree neck angle with a +4 neck length was the appropriate size. We then checked stability with shuck testing as well as flexion and internal rotation. then proceeded with hip extension and checked leg lengths at the knees and heels as well as with the trochanteric checkpoint and knee EKG lead. At this point trials were removed. A liner was inserted to the cup. The femoral stem was inserted. We re-trialed and then proceeded to impact the femoral head onto the Andrés taper. We then surgically reduce the hip check stability again and leg lengths and were satisfied. Betadine rinse was allowed to sit for 5 minutes while everyone changed their gloves. Thorough irrigation was performed. Followed by closure of the external rotators with #2 FiberWire followed by closure of gluteal fascia with #1 Ethibond. 0 Vicryl fat stitches and 2-0 Vicryl subcutaneous stitches and eusebio in the skin. [place] were placed in the skin pin sites over the iliac crest and dressed with a Mepilex dressing. The main incision was dressed with a Mepilex ag dressing and an abduction pillow was placed. Patient tolerated the procedure well there was no intraoperative complications all counts were correct and the patient was brought back to the PACU in stable condition Surgical Findings: Degenerative joint Composing Room Machinist program coordinator executive education: Yes Certified Recreational Therapist: Solo Pena Tasks completed by junior administrative assistant: Closing Additional administration assistant?: Yes Additional Lap Regulator #2: Elena Felipe Tasks completed by administration assistant #2: Retracting Complications Complications: No
--- NOTE | 2024-04-03 10:04 | DCINST_ITS ---
Discharge Instructions Diet Discharge Diet: No restrictions Activity Weight Bearing Status: Weight bearing as tolerated Dressing / Incision Call your doctor if you observe: Shortness of breath and Chest pain Additional Dressing/Incision Instructions:: Do not shower 72hrs. Begin daily showering warm water antibacterial soap postop day #3( 72hrs Post-operatively) and then daily. Leave the dressing on for 72 hours postoperatively then may remove prior to first shower and change dressing daily after this until no drainage for 2 consecutive days then may leave open to air. Follow hip precautions that were reviewed in hospital. Wear compression stockings, may remove at night. Start physical therapy as directed in hospital. Follow prescriptions instructions do not take any other pain medication or differ dosing without consulting your physician. Do not take oral NSAIDs until blood thinner has been completed , then may begin the day after completion if needed . Call Dr. Contreras's office with any concerns. Follow Up Care Please Follow Up With: Edward Contreras DO When: 2 weeks Test Results: Test results from this visit will be discussed in further detail at your follow- up appointment, if applicable. Discharge Plan Admission Primary Reason for Your Visit: Left total hip arthroplasty Attending Provider: Edward Contreras Primary Care Provider: Kermit Banerjee Instructions Print Language: Upper Sorbian Discharge Orders/Prescriptions Prescriptions: New acetaminophen 500 mg tablet 1,000 mg PO Q6H Qty: 90 0RF cephalexin 500 mg capsule 1,000 mg PO Q8H Qty: 4 0RF Rx Instructions: Take 2 tabs before you go to bed and 2 tabs after 5 AM morning after surgery when you wake up Eliquis 2.5 mg tablet 2.5 mg PO BID Qty: 42 0RF Rx Instructions: Begin morning after surgery. oxycodone 5 mg tablet 5 - 10 mg PO Q4H PRN (Reason: pain) 7 Days Qty: 60 0RF Continued Zyrtec 10 mg capsule 10 mg PO DAILY ferrous sulfate 325 mg (65 mg iron) tablet 325 mg PO Q OTHER DAY Qty: 90 1RF amlodipine 5 mg tablet 5 mg PO QDAY Qty: 30 1RF albuterol sulfate 2.5 mg /3 mL (0.083 %) solution for nebulization See Rx Instructions .ROUTE .COMPLEX Qty: 180 2RF Dose Instruction: 2.5 MG (3 ML) INHALED EVERY 4 HOURS NEEDED USE EVERY 4 HOURS AND NEEDED FOR WHEEZING Rx Instructions: 2.5 MG (3 ML) INHALED EVERY 4 HOURS NEEDED USE EVERY 4 HOURS AND NEEDED FOR WHEEZING albuterol sulfate 90 mcg/actuation HFA aerosol inhaler See Rx Instructions .ROUTE .COMPLEX Qty: 8.5 2RF Dose Instruction: INHALE 2 PUFFS BY MOUTH EVERY 6 HOURS IF NEEDED FOR SHORTNESS OF BREATH OR WHEEZING Rx Instructions: INHALE 2 PUFFS BY MOUTH EVERY 6 HOURS IF NEEDED FOR SHORTNESS OF BREATH OR WHEEZING ondansetron 4 mg tablet,disintegrating 4 mg PO Q8H PRN (Reason: nausea and vomiting) Qty: 60 2RF Held tramadol 50 mg tablet 50 mg PO DAILY PRN (Reason: pain) Qty: 7 0RF Hold Instructions: Do not take in conjunction with oxycodone naproxen 500 mg tablet 500 mg PO BID PRN (Reason: pain) Qty: 60 1RF Hold Instructions: Until completion of blood thinner they may resume if needed Other Ambulatory Orders: 12 Lead EKG (Routine) Timeframe: 20240312 Location: None Selected Ordered By: Dr. Edward Contreras Referrals / Follow Up: Kermit Banerjee MD [Primary Care Provider] - Disposition Disposition (needs filled in before D/C Order can be placed): Home, Self Care
--- NOTE | 2024-04-03 10:04 | PCM.POST.ANE ---
Anesthesia: Postop Eval I Current Vital Signs Temperature: 97 F Pulse Rate: 62 Blood Pressure: 119/91 Respiratory Rate: 18 Pulse Ox: 100 Oxygen Delivery Method: Room Air Assessment Airway patent: Yes Spontaneous unlabored respirations: Yes Mental status: Awake and Calm nausea: No Vomiting: No Anesthesia Complication: No Fluid Hydration Crystalloid volume administer (ml): 1,500 Total IV fluid infused: 1,500 Progress Note Anesthesia document: Postop Eval 1 completed: Yes
--- NOTE | 2024-04-03 15:52 | POSTOPAN2_ITS ---
Anesthesia Postop Eval I Sum Postop Eval Completion status Anesthesia document: Postop Eval 1 completed: Yes Anesthesia Postop Eval I Summary Anesthesia Postop Eval I Summary: Anesthesia Postop Eval I: Assessment Summary Airway patent Yes 04/03/24 10:05 CLAIMS [email or web address] Spontaneous unlabored Yes 04/03/24 10:05 CLAIMS [email or web address] respirations Mental status Awake,Calm 04/03/24 10:05 CLAIMS [email or web address] nausea No 04/03/24 10:05 CLAIMS [email or web address] Vomiting No 04/03/24 10:05 CLAIMS [email or web address] Anesthesia Postop Eval I: Fluid Summary Crystalloid volume administer 1,500 04/03/24 10:05 CLAIMS [email or web address] (ml) Colloids volume administered ( ml) Blood Product volume administered (ml) Total IV fluid infused 1,500 04/03/24 10:05 CLAIMS [email or web address].[email or web address] Anesthesia Postop Eval I: Summary Notes Anesthesia Complication No 04/03/24 10:05 CLAIMS [email or web address] Anesthesia Complication Comment: Post-operative progress note Anesthesia: Postop Eval II Evaluation Mental status: Awake and Calm Pain Level: 1 nausea: No Vomiting: No Complications Anesthesia Complication: No
--- NOTE | 2024-04-03 15:52 | PCM.POSTANE2 ---
Anesthesia Postop Eval I Sum Postop Eval Completion status Anesthesia document: Postop Eval 1 completed: Yes Anesthesia Postop Eval I Summary Anesthesia Postop Eval I Summary: Anesthesia Postop Eval I: Assessment Summary Airway patent Yes 04/03/24 10:05 STEWARD/STEWARDESS [email or web address] Spontaneous unlabored Yes 04/03/24 10:05 STEWARD/STEWARDESS [email or web address] respirations Mental status Awake,Calm 04/03/24 10:05 STEWARD/STEWARDESS [email or web address] nausea No 04/03/24 10:05 STEWARD/STEWARDESS [email or web address] Vomiting No 04/03/24 10:05 STEWARD/STEWARDESS [email or web address] Anesthesia Postop Eval I: Fluid Summary Crystalloid volume administer 1,500 04/03/24 10:05 STEWARD/[email or web address] (ml) Colloids volume administered ( ml) Blood Product volume administered (ml) Total IV fluid infused 1,500 04/03/24 10:05 STEWARD/STEWARDESS [email or web address] Anesthesia Postop Eval I: Summary Notes Anesthesia Complication No 04/03/24 10:05 STEWARD/STEWARDESS [email or web address] Anesthesia Complication Comment: Post-operative progress note Anesthesia: Postop Eval II Evaluation Mental status: Awake and Calm Pain Level: 1 nausea: No Vomiting: No Complications Anesthesia Complication: No
== END 2024-04-03 16:54 | disposition home or self-care (01) ==
LOC: SDC 05:24 → AC 05:24
PROVIDERS: Anesthesiology; PCP Internal Medicine; Referring Provider Orthopaedic Surgery; Visit Provider Orthopaedic Surgery
PROC: 8E0Y0CZ Robotic Assisted Procedure of Lower Extremity, Open Approach (ICD-10-PCS; CPT 27130; principal; 2024-04-03 07:00)
DX: M16.12 Unilateral primary osteoarthritis, left hip (principal); I10 Essential (primary) hypertension; J45.909 Unspecified asthma, uncomplicated; F17.210 Nicotine dependence, cigarettes, uncomplicated; Z79.51 Long term (current) use of inhaled steroids; Z79.01 Long term (current) use of anticoagulants; Z79.899 Other long term (current) drug therapy
CPT/HCPCS: 27130; 01214; 36415; 73502; 80048; 80323; 81025; 82962; 82985; 83036; 83735; 85025; 85610; 85730; 86850; 86900; 86901; 87081; 88305; 88311; 97162; C1713; C1776; J7120; G0480; J2405; J3475

== ENCOUNTER 2024-05-10 14:30 | Outpatient (RCR) | payer OTHER, SELFPAY ==
--- NOTE | 2024-04-09 08:15 | HP.PTEVAL_ITS ---
Patient's Visit Information Visit Information Visit Information: RUSS RAMIREZ is a 44 year old F referred to Physical Therapy by Dr. Edward Contreras DO with a diagnosis of L ASHU, DOS: 04/03/24. Date of Evaluation: 04/06/24 Physical Therapist: Benson Flores DPT Visit Plan Frequency: 2-3x /Week Duration: 6 Weeks Plan: posterior/lateral hip precautions 1) L hip ROM, HS stretching 2) active L hip ROM 3) functional strengthening 4) gait progression to no AD when safely ready May use ice for pain control. Subjective Subjective: Pt. is here today for her initial evaluation with diagnosis of L ASHU. DOS: 04/03/24. Pt. reports overall doing well. She arrives with significant other. She is using FWW as indicated. Pt. reports 5/10 pain with walking and 3/10 at rest. She is taking pain meds as prescribed. Pt. reports no chills, no fever, no calf pain and no changes in breathing. Pt. has been doing her exercises as tolerated. 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 Pt. is hopeful to increase her ROM and get back to all household and recreational activities without limitations. Pt. has bandage still in place. Pt. is to remove today. Pain L hip: Pain Intensity (Out of 10): 5 Pain Intensity Range: 2 and 7 Objective Objective: POSTURE: Pt. has slight increased wt. shift to R side. Pt. uses FWW in stance. Slight flexed posture as well. PALPATION: Pt. has normal healing incision. No signs of infection. Pt. has tenderness around lateral hip. NEURO: pt. has normal sensation in BLEs. Pt. has normal DTR. Pt. is able to rise on heels and toes without issues. ROM: L Hip: PROM: flexion 70deg, abd 45deg. Tight HS noted bilaterally. MMT: distal LEs. LLE: ankle: 5/5, knee: ext 21.3#, flexion 18#; hip: flexion 0#, abd 0#. RLE: ankle 5/5 throughout; knee: ext 29.3#, flexion 21#; hip: flexion 18#, abd did not test. GAIT: Pt. ambulates with FWW with decreased step length with LLE, sligth flexed posture throughout. Pt .report incresed pain during L stance phase as well. TU.1sec with FWW 30sec sit to stand rep test: 5 with use of UEs. Balance/Special Test Scores WOMAC Total Score: 68 WOMAC Percentatge: 29.1700 Goals Goal 1:: LTG: Pt. to be I with HEP. Goal Time Frame: 4-6 Weeks Goal 2:: STG: Pt. to sleep throughout the night without increase in symptoms. Goal Time Frame: 2 Weeks Goal 3:: LTG: Pt. to have symmetrical B hip ROM. Goal Time Frame: 4-6 Weeks Goal 4:: LTG: Pt. to ambulate without AD with normalized gait pattern without issues. Goal Time Frame: 4-6 Weeks Goal 5:: LTG: Pt. to negotiate steps with 1 HR with reciprocal pattern. Goal Time Frame: 6-8 Weeks Goal 6:: LTG: Pt. to complete TUG with time less than 10seconds indicating proper functional mobility. Goal Time Frame: 4-6 Weeks Rehabilitation Potential Physical Therapy Diagnosis: Pt. has signs and symptoms consistent with L ASHU. DOS: 04/03/24. Pt. has marked hypombility, weakness, difficulty walking. She would benefit from PT to address the above limitations progressing back to all activities without issues. Rehabilitation Potential: Excellent Anticipated Interventions Patient/Client Instruction: Educate patient on: Condition, Plan of Care, Risk Factors and Benefits of Fitness Program For the Purpose of:: To facilitate caregiver knowledge, To improve self management, To prevent re-injury, To improve ability to perform tasks related to life management and To improve tolerance to ADL's Therapeutic Exercise to Include: Strength training, Power training, Endurance training, Body mechanics, Postural training, Flexibilty training, Gait and locomotor training, Passive ROM and Active ROM For the Purpose of:: To decrease pain, To decrease swelling/inflammation, To increase ROM, To improve nutrient delivery to tissue, To increase oxygenation perfusion, To improve muscle performance and motor function, To improve ability to perform ADL's, To decrease level of supervision to perform tasks, To improve gait and locomotor functions, To improve health of tissue, To decrease soft tissue restriction and To increase flexibility/ROM Cryotherapy (ice pack, ice massage): Yes Thermo therapy (hot pack): Yes For the Purpose of:: To decrease pain, To decrease swelling/inflammation, To increase ROM and To improve nutrient delivery to tissue Text: Thank you for the opportunity to evaluate your patient. For Medicare and Medicare HMO plans, please review the plan of care and approve it. It will need to be FAXED BACK to us at [phone] for Medicare purposes. For Medicare only, by signing this I certify the plan of care. Please let me know if there are questions or concerns regarding this plan of care. Physician Signature: Date:
== END 2024-05-10 19:00 | disposition home or self-care (01) ==
LOC: PT 14:30
PROVIDERS: PCP Internal Medicine; Visit Provider Orthopaedic Surgery
DX: M16.12 Unilateral primary osteoarthritis, left hip (principal); Z96.642 Presence of left artificial hip joint
CPT/HCPCS: 97110; 97140; 97161